=== PATIENT | male | born 1960 | race Caucasian/White ===

== ENCOUNTER 2023-11-22 07:30 | Outpatient (CLI) | payer OTHER ==
--- NOTE | 2023-11-22 10:01 | XRAY Report ---
PROCEDURE: Chest 2V INDICATIONS: ANASARCA TECHNIQUE: 2 views of the chest were acquired. COMPARISON: None. FINDINGS: Surgical changes and devices: None. Lungs and pleura: Moderate right pleural effusion with adjacent atelectasis versus consolidation. In creased interstitial markings bilaterally. Mediastinum: Mediastinal contours appear normal. Heart size is mildly enlarged. Bones and chest wall: No suspicious bony lesions. Overlying soft tissues appear unremarkable. IMPRESSION: Heart is mildly enlarged with a moderate right pleural effusion and increased interstitial markings b ilaterally, consistent with volume overload. Reviewed by: Skyler Haynes MD on 11/22/2023 9:59 AM PST Approved by: Skyler Haynes MD on 11/22/2023 9:59 AM PST Station ID: [id number]
== END 2023-11-22 07:45 | disposition home or self-care (01) ==
LOC: DI.N 07:30
PROVIDERS: ATTEND Family Medicine
DX: R60.1 Generalized edema (principal); I51.7 Cardiomegaly; J90 Pleural effusion, not elsewhere classified; R91.8 Other nonspecific abnormal finding of lung field

== ENCOUNTER 2023-11-22 07:45 | Outpatient (CLI) | payer OTHER | END 2023-11-22 08:00 | disposition home or self-care (01) | LOC: LAB.N 07:45 | PROVIDERS: ATTEND Family Medicine | DX: I10 Essential (primary) hypertension (principal); R60.1 Generalized edema; R06.02 Shortness of breath | CPT/HCPCS: 36415; 80053; 83880; 84443; 85025 ==

== ENCOUNTER 2023-11-22 09:11 | Emergency (ER) | payer OTHER ==
[2023-11-22] MEDS ORDERED: FUROSEMIDE 40 MG/4 ML VIAL IVP STA (10:08)
--- NOTE | 2023-11-22 10:10 | ED Physician Documentation ---
History of Present Illness - Stated complaint Stated Complaint: BILAT LEG SWELLING,SOA, - Chief complaint Chief Complaint: General - History obtained from History obtained from: Patient, Family - History of Present Illness Timing: How many days ago (3) - Additonal information Additional information: Durga Rodarte is a 63-year-old male with no specific prior medical history with the exception of being overweight. He is not on any medications and has not seen the doctor in 14 years. Today he went into the urgent care clinic was seen by Dr. Liu for acute swelling (3 days) of the scrotum, shortness of breath and fluid retention with a gain of 40lbs over the past 2 months. The chest x-ray is obtained demonstrating a right-sided pleural effusion, the scrotum is markedly swollen and there is fluid retention all the way to the upper back. He is sent to the ED as this problem looks like it will require IV diuresis and possible thoracentesis. Review of Systems Constitutional: denies: Fever Eyes: denies: Decreased vision, Photophobia Ears: denies: Ear pain Nose: denies: Rhinorrhea / runny nose, Congestion Throat: denies: Sore throat Cardiac: reports: Pedal edema. denies: Chest pain / pressure, Palpitations, Calf pain Respiratory: reports: Dyspnea. denies: Cough, Wheezing GI: reports: Constipation. denies: Abdominal Pain, Nausea, Vomiting : reports: Other (marked scrotal swelling with pain). denies: Dysuria, Frequency Skin: denies: Rash Musculoskeletal: reports: Extremity swelling. denies: Neck pain, Back pain, Extremity pain Neurologic: denies: Generalized weakness, Focal weakness, Numbness PD PAST MEDICAL HISTORY - Past Medical History Past Medical History: Yes Neuro: Migraines Musculoskeletal: Other - Past Surgical History Past Surgical History: Yes Ortho: Other - Present Medications Home Medications: Ambulatory Orders Medication Instructions Recorded Confirmed Potassium Chloride 8 meq PO DAILY PM #20 cap 11/22/23 - Allergies Allergies/Adverse Reactions: Allergies Allergy/AdvReac Type Severity Reaction Status Date / Time No Known Drug Allergies Allergy Verified 11/22/23 09:36 - Social History Does the pt smoke?: No Smoking Status: Never smoker Does the pt drink ETOH?: Yes Does the pt have substance abuse?: No - Immunizations Immunizations are current?: Yes - POLST Patient has POLST: No PD ED PE NORMAL - Vitals Vital signs reviewed: Yes (hypertensive and hypoxic) - General General: Alert and oriented X 3, Well developed/nourished, Other (appears dyspneic at rest) - HEENT HEENT: Atraumatic, PERRL, EOMI - Neck Neck: Supple, no meningeal sign, No bony TTP - Cardiac Cardiac: RRR, Other (2/6 holosystolic murmer at LSB.) - Respiratory Respiratory: Other (diminished breath sounds on the right base) - Abdomen Abdomen: Soft, Non tender, Other (distended) - Back Back: No CVA TTP, No spinal TTP - Derm Derm: Normal color, Warm and dry, No rash - Extremities Extremities: No deformity, Other (edema present 2+ pitting up to back) - Neuro Neuro: Alert and oriented X 3, apricot packer 2-12 intact, No motor deficit, No sensory deficit, Normal speech Eye Opening: Spontaneous Motor: Obeys Commands Verbal: Oriented GCS Score: 15 - Psych Psych: Normal mood, Normal affect Results - Vitals Vitals: Vital Signs - 24 hr 11/22/23 11/22/23 11/22/23 09:30 11:36 11:55 Temperature 36.4 C L Heart Rate 92 89 Respiratory 20 18 Rate Blood Pressure 169/70 H 153/75 H O2 Saturation 87 L 94 77 L If not protocol : Oxygen Flow, liters/minute 11/22/23 11/22/23 12:13 14:00 Temperature Heart Rate 84 Respiratory 15 Rate Blood Pressure 144/67 H O2 Saturation 95 98 If not protocol 4 3 : Oxygen Flow, liters/minute Oxygen O2 Source Nasal cannula - EKG (time done) 0953 EKG releavant findings:: EKG personally interpreted by author of this note. Relevant findings are: Rate: Rate (enter#) (88) Rhythm: NSR QRS: Low voltage (borderline) Compare to prior EKG: Unchanged from prior EKG (SPT done earlier today in the office there are no specific changes ) Computer interpretation: Agree with computer - Labs Labs: Laboratory Tests 11/22/23 11/22/23 11/22/23 11:00 11:00 11:00 WBC 5.7 RBC 3.61 L Hgb 11.8 L Hct 36.1 L MCV 100.0 H MCH 32.7 H MCHC 32.7 RDW 17.0 H Plt Count 87 L MPV 9.1 Neut # (Auto) 3.7 Lymph # (Auto) 1.1 L [place] # (Auto) 0.6 Eos # (Auto) 0.3 Baso # (Auto) 0.0 Absolute Nucleated RBC 0.00 Nucleated RBC % 0.0 Manual Slide Review ROGUER WBC Morphology ROGUER Platelet Estimate ROGUER Platelet Morphology ROGUER RBC Morph Micro Appear ROGUER PT INR APTT Sodium 138 Potassium 4.0 Chloride 109 Carbon Dioxide 22 Anion Gap 7.0 BUN 16 Creatinine 0.7 Estimated GFR (MDRD) 114 Glucose 91 Calcium 8.5 Total Bilirubin 5.5 H AST 35 ALT 19 Alkaline Phosphatase 145 H Troponin I High Sens 8.8 B-Natriuretic Peptide 136 H Total Protein 5.9 L Albumin 2.9 L Globulin 3.0 Albumin/Globulin Ratio 1.0 Lipase 75 TSH 5.22 Urine Color Urine Clarity Urine pH Ur Specific [place] Urine Protein Urine Glucose (UA) Urine Ketones Urine Occult Blood Urine Nitrite Urine Bilirubin Urine Urobilinogen Ur Leukocyte Esterase Ur Microscopic Review Urine Culture Comments Slides for Path Review ROGUER 11/22/23 11/22/23 12:20 14:45 WBC RBC Hgb Hct MCV MCH MCHC RDW Plt Count MPV Neut # (Auto) Lymph # (Auto) [place] # (Auto) Eos # (Auto) Baso # (Auto) Absolute Nucleated RBC Nucleated RBC % Manual Slide Review WBC Morphology Platelet Estimate Platelet Morphology RBC Morph Micro Appear PT 15.7 H INR 1.4 H APTT 30.6 Sodium Potassium Chloride Carbon Dioxide Anion Gap BUN Creatinine Estimated GFR (MDRD) Glucose Calcium Total Bilirubin AST ALT Alkaline Phosphatase Troponin I High Sens B-Natriuretic Peptide Total Protein Albumin Globulin Albumin/Globulin Ratio Lipase TSH Urine Color YELLOW Urine Clarity CLEAR Urine pH 6.0 Ur Specific [place] 1.010 Urine Protein NEGATIVE Urine Glucose (UA) NEGATIVE Urine Ketones NEGATIVE Urine Occult Blood TRACE-INTA Urine Nitrite NEGATIVE Urine Bilirubin NEGATIVE Urine Urobilinogen 0.2 (NORMAL) Ur Leukocyte Esterase NEGATIVE Ur Microscopic Review NOT INDICATED Urine Culture Comments NOT INDICATED Slides for Path Review - Rads (name of study) chest Relevant Findings:: Prelim report reviewed (Impression: Heart is mildly enlarged with moderate right pleural effusion and increased interstitial markings bilaterally, consistent with volume overload.), EMP independent interpretation of test Procedures - Bedside sono Bedside sono by EMP: With use of POCUS I examined the right lung field found there to be a rim of fluid around it looks like the lung tissue this did not appear to be amenable to thoracentesis in the emergency department. - IVC sono (time) 1000 Bedside IVC sono: IVC measures (cm) (2.1), Fluid overload PD Medical Decision Making - ED course Complexity details: reviewed results, re-evaluated patient, considered differential Reviewed Lab Results: We reviewed a complete blood count showing a normal white blood cell count of 5.7 and a depressed hemoglobin 11.8 and a depressed hematocrit of 36.1 and an elevated MCV of 100 and low platelets of 87,000. There are no comparisons for this patient. Chemistries showed normal electrolytes normal kidney function BNP mildly elevated 136 troponin elevated normal at 8.8 TSH is normal at 5.22 total bilirubin elevated at 5.5 alkaline phosphatase mildly elevated at 145 AST and ALT are normal and again these laboratory tests are without comparisons. My interpretation of these results are the patient likely has a hematologic process with the low platelets he also has an elevated bilirubin without significant other liver function elevations possibly consistent with passive liver congestion. Heart failure is suspected by presentation but the BNP minimally elevated at 136 suggest possible alternative explanation of fluid retention . ED course: 63-year-old male presents to the emergency department with anasarca and swelling of the scrotum that is painful. He looks to have fluid retention with normal renal function. He does not have cardiomegaly and his BNP is only mildly elevated. Etiology is likely alcoholic with low platelets, elevated bilirubin, elevated INR and a history of 1-2 bottles of wine per day. He is hypoxic with O2 sats in the upper 80's to 91. This improves over time with diuresis. Dr. Antunez is consulted in the case and evaluates the patient and finds his level of hypoxia improved. The patient is invested in going home and without criteria for admission he is released. He does have an oxygen concentrator at home and his will bring him back tomorrow for the thoracentesis. He has lasix and blood pressure medication prescribed by Dr. Liu. I have added some potassium as well. Departure - Departure Disposition: Home, Self Care Clinical Impression: Anasarca, Pleural effusion, Hypoxia Condition: Serious Instructions: ED Effusion Pleural, Furosemide tablets Follow-Up: [facility] [place] [Provider Group] Prescriptions: Potassium Chloride 8 meq PO DAILY PM #20 cap Comments: Durga, today it looks like you have anasarca or whole body fluid retention and this is likely a result of liver disease. The liver disease is likely a result of alcohol use. There is a pleural effusion on the right side and this should be drained and you will become more comfortable with your breathing. Follow-up here tomorrow morning at 930 for a thoracentesis in the radiology department. Dr. Liu has prescribed some diuretic and blood pressure medication in addition to this I have prescribed you some potassium to go along with the Lasix. The expectation with treatment is continued improvement in the amount of swelling you are having, and after thoracentesis a marked improvement in your breathing. A follow-up is indicated with [facility] in [place] in the coming week.
[2023-11-22 11:11] LABS: BASOPHILS % (AUTO) 0.7 %; EOSINOPHILS # (AUTO) 0.3 10^3/uL (0.0-0.7); EOSINOPHILS % (AUTO) 5.1 %; HCT - HEMATOCRIT 36.1 % (42.0-52.0); HGB - HEMOGLOBIN 11.8 g/dL (14.0-18.0); LYMPHOCYTES # (AUTO) 1.1 10^3/uL (1.5-3.5); LYMPHOCYTES % (AUTO) 19.4 %; MEAN CORPUSCULAR HEMOGLOBIN 32.7 pg (27.0-31.0); MEAN CORPUSCULAR HGB CONC 32.7 g/dL (32.0-36.0); MEAN PLATELET VOLUME 9.1 fL (7.4-11.4); MONOCYTES # (AUTO) 0.6 10^3/uL (0.0-1.0); MONOCYTES % (AUTO) 9.9 %; NEUTROPHILS # (AUTO) 3.7 10^3/uL (1.5-6.6); NEUTROPHILS % (AUTO) 64.6 %; PLT - PLATELET COUNT 87 10^3/uL (130-450); RED BLOOD COUNT 3.61 10^6/uL (4.70-6.10); WHITE BLOOD COUNT 5.7 x10^3/uL (4.8-10.8)
[2023-11-22 11:30] LABS: ALBUMIN 2.9 g/dL (3.2-5.5); BILIRUBIN,TOTAL 5.5 mg/dL (0.2-1.0); CALCIUM 8.5 mg/dL (8.5-10.3); CREATININE 0.7 mg/dL (0.6-1.3); TOTAL PROTEIN 5.9 g/dL (6.4-8.9)
[2023-11-22 11:35] LABS: TROPONIN I HIGH SENSITIVITY 8.8 ng/L (2.3-19.7)
[2023-11-22 11:45] LABS: THYROID STIMULATING HORMONE 5.22 uIU/mL (0.34-5.60)
[2023-11-22] MEDS ORDERED: iohexoL-300 100 ML VIAL ONE (12:12)
[2023-11-22 12:38] LABS: BILIRUBIN,URINE NEGATIVE (NEGATIVE); GLUCOSE, URINE (UA) NEGATIVE (NEGATIVE); KETONES,URINE (UA) NEGATIVE (NEGATIVE); LEUKOCYTE ESTERASE, URINE NEGATIVE (NEGATIVE); NITRITE,URINE NEGATIVE (NEGATIVE); OCCULT BLOOD,URINE TRACE-INTA (NEGATIVE); PROTEIN,URINE NEGATIVE (NEGATIVE); UROBILINOGEN,URINE 0.2 (NORMAL) E.U./dL (NORMAL)
[2023-11-22 13:29] LABS: CLARITY,URINE CLEAR (CLEAR)
--- NOTE | 2023-11-22 13:41 | CT Report ---
PROCEDURE: Chest W INDICATIONS: R pleural effusion CONTRAST: Omni 300 100ml TECHNIQUE: After the administration of intravenous contrast, a CT scan of the chest was performed. Images were recorded and evaluated at appropriate window settings. Reformats: axial MIP of the chest, coronal and sagittal. For radiation dose reduction, the following was used: automated exposure control, adjustme nt of mA and/or kV according to patient size. COMPARISON: Chest radiograph from the same day. FINDINGS: Image quality: Diagnostic. Chest wall and lower neck: Generalized anasarca is seen. No thyroid nodule which requires sonographic follow up. No axillary or supraclavicular adenopathy by size. Lungs and pleura: There is moderate right pleural effusion with near complete atelectasis of right lo wer lobe and segments atelectasis in posterior aspect of right middle lobe. Mild dependent atelectasi s in posterior aspect of right upper lobe is also seen. No pneumothorax. No left-sided pleural effusi on. No suspicious pulmonary nodule or mass. Central and peripheral airway is patent. Mediastinum: Heart size is normal. No pericardial effusion. No large vessel abnormality. Single-vesse l coronary artery atherosclerotic disease is seen. No mediastinal adenopathy by size criteria. Bones: No aggressive osseous abnormality. Upper Abdomen: Visualized upper abdomen shows moderate amount of ascites fluid and splenomegaly. IMPRESSION: 1. Moderate size right pleural effusion with atelectasis of right lower lobe and segmental atelectasi s in posterior right middle lobe. No suspicious pulmonary nodule or mass. No pneumothorax. Airway is patent. Left lung is clear. 2. Moderate ascites fluid in visualized upper abdomen. Splenomegaly. 3. Generalized anasarca suggestive of third spacing. Heart size is normal, no pericardial effusion. N o mediastinal or hilar lymphadenopathy. Single-vessel coronary artery atherosclerotic disease. Reviewed by: Caleb Stein MD on 11/22/2023 1:40 PM PST Approved by: Caleb Stein MD on 11/22/2023 1:40 PM PST Station ID: [id number]
[2023-11-22 15:06] LABS: PARTIAL THROMBOPLASTIN TIME 30.6 secs (24.9-33.3)
[2023-11-22 15:10] LABS: INR 1.4 (0.8-1.2); PT - PROTHROMBIN TIME 15.7 secs (9.9-12.6)
[2023-11-22] MEDS ORDERED: iohexoL-300 100 ML VIAL IVP ONE (15:17)
[2023-11-22 17:18] VITALS: BP 133/78; O2SAT 91
== END 2023-11-22 17:12 | disposition home or self-care (01) ==
LOC: ED 09:11
DX: J18.2 Hypostatic pneumonia, unspecified organism (principal); J90 Pleural effusion, not elsewhere classified; R09.02 Hypoxemia; R60.1 Generalized edema; I51.7 Cardiomegaly; R91.8 Other nonspecific abnormal finding of lung field
CPT/HCPCS: 36415; 71046; 71260; 80053; 81003; 83690; 83880; 84443; 84484; 85025; 85610; 85730; 93005; 96374; 99284; Q9967; 81001; 87086

== ENCOUNTER 2023-11-25 09:24 | Inpatient (IN) | payer OTHER ==
--- NOTE | 2023-11-25 10:05 | XRAY Report ---
PROCEDURE: Chest 1V INDICATIONS: Shortness of breath TECHNIQUE: One view of the chest was acquired. COMPARISON: 11/22/2023 FINDINGS: Surgical changes and devices: None. Lungs and pleura: There is a right-sided pleural effusion seen, with overlying atelectasis. Generali zed interstitial prominence can be seen. No large pneumothorax is seen on this semiupright study. Mediastinum: Mediastinal contours appear normal. Heart size is normal. Bones and chest wall: No suspicious bony lesions. Overlying soft tissues appear unremarkable. IMPRESSION: Right-sided pleural effusion with overlying atelectasis. The appearance is slightly improved compared to the 11/22/2023 examination. Reviewed by: Yordy Guerrier MD on 11/25/2023 9:03 AM [facility] Approved by: Yordy Guerrier MD on 11/25/2023 9:03 AM [facility] Station ID: [id number]
[2023-11-25 10:50] LABS: BASOPHILS % (AUTO) 0.7 %; EOSINOPHILS # (AUTO) 0.1 10^3/uL (0.0-0.7); HCT - HEMATOCRIT 35.4 % (42.0-52.0); HGB - HEMOGLOBIN 11.1 g/dL (14.0-18.0); LYMPHOCYTES % (AUTO) 17.2 %; MEAN CORPUSCULAR HEMOGLOBIN 31.4 pg (27.0-31.0); MEAN CORPUSCULAR HGB CONC 31.4 g/dL (32.0-36.0); MEAN PLATELET VOLUME 9.3 fL (7.4-11.4); MONOCYTES # (AUTO) 0.9 10^3/uL (0.0-1.0); MONOCYTES % (AUTO) 15.5 %; NEUTROPHILS # (AUTO) 3.9 10^3/uL (1.5-6.6); NEUTROPHILS % (AUTO) 64.3 %; PLT - PLATELET COUNT 94 10^3/uL (130-450); RED BLOOD COUNT 3.54 10^6/uL (4.70-6.10); RED CELL DISTRIBUTION WIDTH 16.8 % (12.0-15.0)
[2023-11-25 11:12] LABS: TROPONIN I HIGH SENSITIVITY 5.1 ng/L (2.3-19.7)
[2023-11-25 11:17] LABS: ALBUMIN 2.7 g/dL (3.2-5.5); CALCIUM 8.3 mg/dL (8.5-10.3); CREATININE 1.3 mg/dL (0.6-1.3); POTASSIUM 4.1 mmol/L (3.5-4.5); TOTAL PROTEIN 5.4 g/dL (6.4-8.9)
[2023-11-25] MEDS: FUROSEMIDE 40 MG/4 ML VIAL IVP STA (11:40)
--- NOTE | 2023-11-25 11:50 | ED Physician Documentation ---
PD HPI DYSPNEA - Stated complaint Stated Complaint: SWELLING, - Chief complaint Chief Complaint: Resp - History obtained from History obtained from: Patient, Family - Additional information Additional information: Patient is a 63-year-old male presenting for evaluation of worsening body swelling with shortness of air. Patient symptoms started at least 5 days ago at which time he was seen at the walk-in clinic and directed to the emergency department. Labs were obtained as well as a chest x-ray and CT scan of the chest. Patient was started on furosemide. He returned on November 23 and had a thoracentesis with 2 L of output. He states that his breathing really did not feel much better after this. He has been using oxygen at home. This is not prescribed to him but they have an oxygen concentrator that belonged to his father. states that at rest he has been satting around 88% but if he moves at all a little bit his oxygen saturations drop as low as into the 60s and 70s. After his ED visit on November 23 it was recommended that he double his dose of Lasix and he has been taking 80 mg p.o. daily for the last 3 days.Patient is short of breath with any movement. He denies any chest pain. Cook catheter had also been placed on prior ED visits and he has only had 500 mL of urine output yesterday with intake of approximately 2300 mL.Denies fever. No cough. Patient's weight was charted at 154 kg on November 23 and . Today he is weighing 156 kg. Review of Systems Constitutional: denies: Fever Cardiac: denies: Chest pain / pressure Respiratory: reports: Dyspnea GI: denies: Abdominal Pain Musculoskeletal: reports: Extremity swelling PD PAST MEDICAL HISTORY - Past Medical History Cardiovascular: Hypertension Neuro: Migraines Musculoskeletal: Other - Past Surgical History Past Surgical History: Yes Ortho: Other - Present Medications Home Medications: Ambulatory Orders Medication Instructions Recorded Confirmed Potassium Chloride 8 meq PO DAILY PM #20 cap 11/22/23 11/25/23 Furosemide [Lasix] 20 mg PO BID 5 Days #10 tablet 11/23/23 11/25/23 carvediloL [Coreg] 3.125 mg PO BID 11/23/23 11/25/23 - Allergies Allergies/Adverse Reactions: Allergies Allergy/AdvReac Type Severity Reaction Status Date / Time No Known Drug Allergies Allergy Verified 11/23/23 09:39 - Social History Does the pt smoke?: No Smoking Status: Never smoker Does the pt drink ETOH?: Yes Does the pt have substance abuse?: No - Immunizations Immunizations are current?: Yes - POLST Patient has POLST: No PD ED PE NORMAL - General General: Alert and oriented X 3, No acute distress, Well developed/nourished - HEENT HEENT: Atraumatic - Neck Neck: Supple, no meningeal sign - Cardiac Cardiac: RRR, Strong equal pulses - Respiratory Respiratory: Other (Tachypneic with minimal movements, diminished at the bases) - Abdomen Abdomen: Normal bowel sounds, Soft, Non tender - Male Male : Other (Scrotal edema, Cook catheter in place) - Derm Derm: Warm and dry - Extremities Extremities: Other (Bilateral lower extremity edema) - Neuro Neuro: Normal speech Results - Vitals Vitals: Vital Signs - 24 hr 11/25/23 11/25/23 11/25/23 09:29 11:27 12:35 Temperature 36.5 C Heart Rate 77 72 Respiratory 28 H 13 Rate Blood Pressure 131/60 H 119/71 O2 Saturation 88 L 95 88 L Oxygen O2 Source Room air Oxygen Flow Rate 2 - EKG (time done) 0950 EKG releavant findings:: EKG personally interpreted by author of this note. Relevant findings are: Rate 76, normal sinus rhythm, no STEMI, QTc 493 - Labs Labs: Laboratory Tests 11/25/23 11/25/23 11/25/23 10:46 10:46 10:46 WBC 6.0 RBC 3.54 L Hgb 11.1 L Hct 35.4 L MCV 100.0 H MCH 31.4 H MCHC 31.4 L RDW 16.8 H Plt Count 94 L MPV 9.3 Neut # (Auto) 3.9 Lymph # (Auto) 1.0 L [place] # (Auto) 0.9 Eos # (Auto) 0.1 Baso # (Auto) 0.0 Absolute Nucleated RBC 0.00 Nucleated RBC % 0.0 Sodium 139 Potassium 4.1 Chloride 107 Carbon Dioxide 24 Anion Gap 8.0 BUN 29 H Creatinine 1.3 Estimated GFR (MDRD) 56 L Glucose 94 Calcium 8.3 L Total Bilirubin 5.0 H AST 25 ALT 17 Alkaline Phosphatase 110 Troponin I High Sens 5.1 B-Natriuretic Peptide 143 H Total Protein 5.4 L Albumin 2.7 L Globulin 2.7 Albumin/Globulin Ratio 1.0 Lipase 347 H PD Medical Decision Making - ED course Complexity details: reviewed results, re-evaluated patient, d/w patient, d/w family ED course: Patient is a 63-year-old male presenting for evaluation of shortness of air and worsening swelling. This is his third ED visit for similar symptoms in the last few days. He is hypoxic on initial vitals with a room air sat of 88%. Per his spouse he has been using oxygen at home that does not belong to him because they have also noted that he has been hypoxic. He has been taking the Lasix as directed including a recent increase in the dose without any significant improvement. He recently had a right-sided thoracentesis which did not help his symptoms significantly. EKG shows a normal sinus rhythm. Labs including CBC, chemistry, troponin and PFT were obtained and reviewed. Chest x-ray which I reviewed shows a right-sided pleural effusion, no pneumothorax. Patient has not improved despite attempts at outpatient management and again is requiring oxygen. Discussed with Dr. Antunez who will admit for further management. I did give an additional dose of Lasix to see if this would increase any urine output this morning. We also changed the Cook catheter to ensure that it is draining. Departure - Departure Disposition: [facility] DC/[place] Clinical Impression: Acute hypoxemic respiratory failure, Peripheral edema Discharge Date/Time: 11/25/23 14:21
[2023-11-25] MEDS ORDERED: SODIUM CHLORIDE FLUSH 0.9% 10 ML SYRINGE IVP PRN (12:50)
--- NOTE | 2023-11-25 13:03 | HISTORY & PHYSICAL EXAMINATION ---
Chief Complaint - Chief Complaint Chief Complaint: Swelling History of Present Illness - Admitted From Admitted From:: [facility] - History Obtained From Records Reviewed: Yes History obtained from: Patient, significant other and emergency room physician, Dr. Sergio Simmons - History of Present Illness HPI Comment/Other: Stacy Rodarte is a 63-year-old man who presents to the emergency room with complaints of diffuse body edema and shortness of breath. Patient reports he has noticed increased edema in his abdominal area since [place]. He reports that it is worsened significantly over the last week. He was initially seen in the emergency room. On November 22, 2023 and was sent home on diuretics. He returned the next day and underwent a right thoracentesis. Approximately 2 L of fluid was removed from the right pleural space.He reports he has been using oxygen at home from an oxygen concentrator. The oxygen was not prescribed for him. He reports he has been taking 80 mg of Lasix twice a day. In emergency room, patient received 40 mg of Lasix intravenously. He reports he has never had a sleep study and does not use CPAP therapy. History - Past Medical History Cardiovascular: reports: Hypertension Neuro: reports: Migraines Musculoskeletal: reports: Other - Past Surgical History Ortho: reports: Other - POLST Patient has POLST: No Meds/Allgy - Home Medications Home Medications: Ambulatory Orders Medication Instructions Recorded Confirmed Potassium Chloride 8 meq PO DAILY PM #20 cap 11/22/23 11/25/23 Furosemide [Lasix] 20 mg PO BID 5 Days #10 tablet 11/23/23 11/25/23 carvediloL [Coreg] 3.125 mg PO BID 11/23/23 11/25/23 - Allergies Allergies/Adverse Reactions: Allergies Allergy/AdvReac Type Severity Reaction Status Date / Time No Known Drug Allergies Allergy Verified 11/23/23 09:39 Review of Systems - Constitutional Constitutional: reports: Fatigue, Weakness, Weight gain - Respiratory Respiratory: reports: Snoring, SOB at rest, SOB with exertion - Gastrointestinal Gastrointestinal: reports: Other (Increased abdominal girth.) Exam - Vital Signs Reviewed Vital Signs: Yes Vital Signs: Vital Signs x48h Temp Pulse Resp BP Pulse Ox O2 Flow Rate 11/25/23 12:58 36.5 C 76 15 127/67 97 2 11/25/23 12:35 88 L 11/25/23 11:27 72 13 119/71 95 11/25/23 09:29 36.5 C 77 28 H 131/60 H 88 L - Physical Exam General Appearance: positive: No acute distress, Alert Eyes Bilateral: positive: EOMI, Conjunctivae nml ENT: positive: No signs of dehydration Neck: positive: No JVD, Trachea midline Respiratory: positive: Other (Fair air exchange in all lung freire no wheezing. Positive bibasilar crackles.) Cardiovascular: positive: Other (Positive S1-S2 no extra heart sounds.) Abdomen: positive: Other (Positive bowel sounds. Morbidly obese. Nontender. Nondistended) Skin: positive: No rash Extremities: positive: Non-tender Neurologic/Psychiatric: positive: Oriented x3, Other (Nonfocal exam.) Conclusion/Plan - Problem List (1) Acute hypoxemic respiratory failure Conclusion/Plan: Etiology of hypoxemic respiratory failure is unknown and differential diagnosis would include cardiac dysfunction, liver disease and pulmonary hypertension. Plan: Admit to the medical floor Continue diuresis Patient may benefit from several doses of albumin Echocardiogram CT of abdomen/pelvis if can obtain one. He not fit on CT table. (2) Anasarca Etiology of anasarca is not clear and may be secondary to heart failure, liver failure or a multifactorial process. - Lab Results Fish Bones: 11/25/23 10:46 11/25/23 10:46
--- NOTE | 2023-11-25 14:21 | PHARMACY PROGRESS NOTE ---
- Best Possible Medication History Admit Date and Time: 11/25/23 1250 Processed by: Nursing As the person ultimately responsible for medication therapy, providers are able to order a medication from an existing home medication list in [facility] via the "Reconcile Routine" prior to Confirmation of that medication by family readiness support assistant. Such practice is discouraged except when the physician, in their clinical judgment, deems that a medical need exists for a medication without regard to previous use.
[2023-11-25] MEDS: POTASSIUM CHLORIDE 20 MEQ/15 ML UDC PO SCH ×2 (17:10→23:45)
[2023-11-25] MEDS: FUROSEMIDE IV SCH (17:12)
[2023-11-25] MEDS: SODIUM CHLORIDE 0.9% IV SCH (17:12)
[2023-11-25] MEDS: ALBUMIN 25% 12.5 GM/50 ML VIAL IV SCH ×2 (17:12→18:12)
[2023-11-25] MEDS: HYDROcod/ACETAM 5/325 MG TABLET PO PRN (17:12)
[2023-11-25] MEDS: SODIUM CHLORIDE FLUSH 0.9% 10 ML SYRINGE IVP SCH (17:12)
[2023-11-25] MEDS: HEPARIN 5,000 UNIT/ML VIAL SUBQ SCH (20:38)
[2023-11-25] MEDS: SPIRONOLACTONE 25 MG TABLET PO SCH (21:43)
[2023-11-26 06:14] LABS: CALCIUM 8.3 mg/dL (8.5-10.3); CREATININE 1.1 mg/dL (0.6-1.3); MAGNESIUM 1.6 mg/dL (1.7-2.3); PHOSPHORUS 4.5 mg/dL (2.5-5.0); POTASSIUM 3.9 mmol/L (3.5-4.5)
--- NOTE | 2023-11-26 08:16 | PROVIDER PROGRESS NOTE ---
Assessment/Plan - Problem List (1) Acute hypoxemic respiratory failure Assessment/Plan: Etiology of hypoxemic respiratory failure is unknown and differential diagnosis would include cardiac dysfunction, liver disease and pulmonary hypertension. Plan: Continue diuresis Patient with good urine output overnight. Continue albumin and Lasix. Echocardiogram CT of abdomen/pelvis if can obtain one. He not fit on CT table. Continue to monitor serum potassium. (2) Anasarca Etiology of anasarca is not clear and may be secondary to heart failure, liver failure or a multifactorial process. - Current Meds Current Meds: Current Medications Generic Name Dose Route Start Last Admin Trade Name Freq PRN Reason Stop Dose Admin Hydrocodone Bitart/Acetaminophen 1 tab 11/25/23 15:51 11/26/23 07:43 Hydrocod/Acetam 5/325 Mg Tablet PO 1 tab Q4HR PRN Administration Moderate Pain (Level 4-6) Heparin Sodium (Porcine) 5,000 unit 11/25/23 21:00 11/25/23 20:40 Heparin 5,000 Unit/Ml Vial SUBQ Not Given BID ILA Furosemide 40 mg/ Sodium 54 mls @ 27 mls/hr 11/25/23 17:00 11/26/23 03:14 Chloride IV Infused Q8H ILA Infusion Protocol Albumin Human 12.5 gm in 50 mls @ 50 mls/hr 11/25/23 17:00 11/26/23 02:26 Albuminar-25 IV Infused Q8H ILA Infusion Albumin Human 12.5 gm in 50 mls @ 50 mls/hr 11/25/23 18:00 11/26/23 03:20 Albuminar-25 IV Infused Q8H ILA Infusion Potassium Chloride 40 meq 11/25/23 16:17 11/26/23 07:43 Potassium Chloride 20 Meq/15 Ml Udc PO 40 meq DAILYWM ILA Administration Potassium Chloride 40 meq 11/25/23 23:45 11/25/23 23:45 Potassium Chloride 20 Meq/15 Ml Udc PO 11/26/23 23:44 40 meq ONCE ILA Administration Sodium Chloride 10 ml 11/25/23 17:00 11/26/23 02:08 Sodium Chloride Flush 0.9% 10 Ml Syringe IVP 10 ml 0100,0900,1700 ILA Administration Spironolactone 25 mg 11/25/23 21:27 11/25/23 21:43 Spironolactone 25 Mg Tablet PO 25 mg DAILY ILA Administration - Lab Result Fish Bone Diagrams: 11/25/23 10:46 11/26/23 19:17 - Additional Planning My Orders: My Active Orders 11/25/23 12:50 Activity Orders [RC] Q2HR IO [RC] IOSHIFT Initiate Bowel Care Protocol [RC] .protocol Initiate Line Care Protocol [RC] QSHIFT Initiate Personal Care Protoco [RC] .protocol Oxygen Therapy [RC] .PRN Telemetry (24 Hour) [RC] Q4HR Vital Signs [RC] Q4HR Sodium Chloride Flush 0.9% [Normal Saline Flush 0.9%] 10 ml IVP PRN PRN Code Status [OTHERS] Routine Condition of Patient [OTHERS] Routine DVT Prophylaxis [OTHERS] Routine 11/25/23 12:57 Evaluate and Treat OT [OT] Routine Evaluate and Treat PT [PT] Routine 11/25/23 13:00 Daily Weight [RC] 0600 Fluid Restriction [RC] IOSHIFT Miscellaenous Nursing Order [RC] QSHIFT 11/25/23 15:51 HYDROcod/ACETAM 5/325 [[place] 5/325] 1 tab PO Q4HR PRN 11/25/23 Dinner Cardiac Diet [DIET] 11/25/23 16:17 Potassium Chloride Oral Soln [Potassium Chloride] 40 meq PO DAILYWM 11/25/23 17:00 Albumin 25% [Albuminar-25] 12.5 gm in 50 ml IV Q8H FUROSEMIDE INJ 100mg VIAL [LASIX INJ 100mg VIAL] 40 mg Sodium Chloride 0.9% [Normal Saline 0.9%] 50 ml IV Q8H Sodium Chloride Flush 0.9% [Normal Saline Flush 0.9%] 10 ml IVP 0100,0900,1700 11/25/23 18:00 Albumin 25% [Albuminar-25] 12.5 gm in 50 ml IV Q8H 11/25/23 21:00 Heparin [Heparin Sodium (Porcine)] 5,000 unit SUBQ BID 11/25/23 21:27 Spironolactone [Aldactone] 25 mg PO DAILY 11/25/23 23:45 Potassium Chloride Oral Soln [Potassium Chloride] 40 meq PO ONCE 11/26/23 08:00 Echo Complete w/Bubble Study [ECHO] Routine Subjective - Subjective Patient Reports: Other (Alert. He denies chest pain, abdominal pain. He has no other complaints at this time.) Objective Vital Signs: Vital Signs - 24 hr 11/25/23 11/25/23 11/25/23 09:29 11:27 12:35 Temperature 36.5 C Heart Rate 77 72 Heart Rate [ Brachial] Heart Rate [ Monitoring electrodes] Respiratory 28 H 13 Rate Blood Pressure 131/60 H 119/71 Blood Pressure [Right Brachial artery] O2 Saturation 88 L 95 88 L If not protocol : Oxygen Flow, liters/minute 11/25/23 11/25/23 11/25/23 12:58 13:30 13:39 Temperature 36.5 C 36.6 C Heart Rate 76 Heart Rate [ Brachial] Heart Rate [ 72 Monitoring electrodes] Respiratory 15 26 H Rate Blood Pressure 127/67 Blood Pressure 134/86 H [Right Brachial artery] O2 Saturation 97 96 If not protocol 2 2 2 : Oxygen Flow, liters/minute 11/25/23 11/25/23 11/25/23 15:59 21:00 23:00 Temperature 36.7 C 36.7 C Heart Rate Heart Rate [ 78 Brachial] Heart Rate [ 76 Monitoring electrodes] Respiratory 18 20 Rate Blood Pressure Blood Pressure 127/63 127/62 [Right Brachial artery] O2 Saturation 94 95 If not protocol 2 2 2 : Oxygen Flow, liters/minute 11/25/23 11/26/23 11/26/23 23:47 06:00 07:23 Temperature 37.1 C 36.6 C 37.1 C Heart Rate Heart Rate [ 76 83 80 Brachial] Heart Rate [ Monitoring electrodes] Respiratory 19 19 22 Rate Blood Pressure Blood Pressure 138/76 H 134/69 H 142/64 H [Right Brachial artery] O2 Saturation 92 92 95 If not protocol 2 2 2 : Oxygen Flow, liters/minute 11/26/23 07:53 Temperature Heart Rate Heart Rate [ Brachial] Heart Rate [ Monitoring electrodes] Respiratory Rate Blood Pressure Blood Pressure [Right Brachial artery] O2 Saturation If not protocol 2 : Oxygen Flow, liters/minute Oxygen O2 Source Nasal cannula Oxygen Flow Rate 2 I&O (Last 24 Hrs): Intake and Output Totals x24h 11/24/23 11/25/23 11/26/23 23:59 23:59 23:59 Intake Total 1064 154 Output Total 1150 950 Balance -86 -796 General: Alert, Oriented x3, Cooperative, No acute distress HEENT: Atraumatic Neck: Supple, No JVD, No thyromegaly Neuro: Alert, Non Focal Cardiovascular: Regular rate, Normal S1, Normal S2, No murmurs Respiratory: Chest non-tender, No respiratory distress, Breath sounds nml Abdomen: Normal bowel sounds, Soft, No tenderness Extremities: No cyanosis, Other (Positive lower extremity edema.) Skin: No rashes - Results Results: Laboratory Results WBC 6.0 x10^3/uL (4.8-10.8) 11/25/23 10:46 RBC 3.54 10^6/uL (4.70-6.10) L 11/25/23 10:46 Hgb 11.1 g/dL (14.0-18.0) L 11/25/23 10:46 Hct 35.4 % (42.0-52.0) L 11/25/23 10:46 MCV 100.0 fL (80.0-94.0) H 11/25/23 10:46 MCH 31.4 pg (27.0-31.0) H 11/25/23 10:46 MCHC 31.4 g/dL (32.0-36.0) L 11/25/23 10:46 RDW 16.8 % (12.0-15.0) H 11/25/23 10:46 Plt Count 94 10^3/uL (130-450) L 11/25/23 10:46 MPV 9.3 fL (7.4-11.4) 11/25/23 10:46 Neut # (Auto) 3.9 10^3/uL (1.5-6.6) 11/25/23 10:46 Lymph # (Auto) 1.0 10^3/uL (1.5-3.5) L 11/25/23 10:46 [place] # (Auto) 0.9 10^3/uL (0.0-1.0) 11/25/23 10:46 Eos # (Auto) 0.1 10^3/uL (0.0-0.7) 11/25/23 10:46 Baso # (Auto) 0.0 10^3/uL (0.0-0.1) 11/25/23 10:46 Absolute Nucleated RBC 0.00 x10^3/uL 11/25/23 10:46 Nucleated RBC % 0.0 /100WBC 11/25/23 10:46 Sodium 140 mmol/L (135-145) 11/26/23 04:39 Potassium 3.9 mmol/L (3.5-4.5) 11/26/23 04:39 Potassium 3.9 mmol/L (3.5-4.5) 11/26/23 04:39 Chloride 107 mmol/L (101-111) 11/26/23 04:39 Carbon Dioxide 26 mmol/L (21-32) 11/26/23 04:39 Anion Gap 7.0 (6-13) 11/26/23 04:39 BUN 30 mg/dL (6-20) H 11/26/23 04:39 Creatinine 1.1 mg/dL (0.6-1.3) 11/26/23 04:39 Estimated GFR (MDRD) 68 (>89) L 11/26/23 04:39 Glucose 89 mg/dL (74-104) 11/26/23 04:39 Calcium 8.3 mg/dL (8.5-10.3) L 11/26/23 04:39 Phosphorus 4.5 mg/dL (2.5-5.0) 11/26/23 04:39 Magnesium 1.6 mg/dL (1.7-2.3) L 11/26/23 04:39 Total Bilirubin 5.0 mg/dL (0.2-1.0) H 11/25/23 10:46 AST 25 IU/L (10-42) 11/25/23 10:46 ALT 17 IU/L (10-60) 11/25/23 10:46 Alkaline Phosphatase 110 IU/L (42-121) 11/25/23 10:46 Troponin I High Sens 5.1 ng/L (2.3-19.7) 11/25/23 10:46 B-Natriuretic Peptide 143 pg/mL (5-100) H 11/25/23 10:46 Total Protein 5.4 g/dL (6.4-8.9) L 11/25/23 10:46 Albumin 2.7 g/dL (3.2-5.5) L 11/25/23 10:46 Globulin 2.7 g/dL (2.1-4.2) 11/25/23 10:46 Albumin/Globulin Ratio 1.0 (1.0-2.2) 11/25/23 10:46 Lipase 347 U/L (11-82) H 11/25/23 10:46 ABX Reporting Has patient been on IV antibiotics over the past 48 hours?: No Current Medications - Current Medications Current Medications: Active Medications Hydrocodone Bitart/Acetaminophen (Hydrocod/Acetam 5/325 Mg Tablet) 1 tab PO Q4HR PRN PRN Reason: Moderate Pain (Level 4-6) Last Admin: 11/26/23 07:43 Dose: 1 tab Heparin Sodium (Porcine) (Heparin 5,000 Unit/Ml Vial) 5,000 unit SUBQ BID [facility] Last Admin: 11/25/23 20:40 Dose: Not Given Furosemide 40 mg/ Sodium (Chloride) 54 mls @ 27 mls/hr IV Q8H [facility]; Protocol Last Infusion: 11/26/23 03:14 Dose: Infused Albumin Human (Albuminar-25) 12.5 gm in 50 mls @ 50 mls/hr IV Q8H [facility] Last Infusion: 11/26/23 02:26 Dose: Infused Albumin Human (Albuminar-25) 12.5 gm in 50 mls @ 50 mls/hr IV Q8H [facility] Last Infusion: 11/26/23 03:20 Dose: Infused Potassium Chloride (Potassium Chloride 20 Meq/15 Ml Udc) 40 meq PO DAILYWM [facility] Last Admin: 11/26/23 07:43 Dose: 40 meq Potassium Chloride (Potassium Chloride 20 Meq/15 Ml Udc) 40 meq PO ONCE [facility] Stop: 11/26/23 23:44 Last Admin: 11/25/23 23:45 Dose: 40 meq Sodium Chloride (Sodium Chloride Flush 0.9% 10 Ml Syringe) 10 ml IVP PRN PRN PRN Reason: NEEDED PER PROVIDER ORDERS Sodium Chloride (Sodium Chloride Flush 0.9% 10 Ml Syringe) 10 ml IVP 0100,0900,1700 [facility] Last Admin: 11/26/23 02:08 Dose: 10 ml Spironolactone (Spironolactone 25 Mg Tablet) 25 mg PO DAILY [facility] Last Admin: 11/25/23 21:43 Dose: 25 mg carvediloL [Coreg] 3.125 mg PO BID 11/23/23
[2023-11-26] MEDS: POTASSIUM CHLORIDE 20 MEQ/15 ML UDC PO SCH (22:06)
[2023-11-27 06:40] LABS: ALBUMIN 3.2 g/dL (3.2-5.5); ALBUMIN/GLOBULIN RATIO 1.3 (1.0-2.2); BILIRUBIN,TOTAL 4.1 mg/dL (0.2-1.0); CALCIUM 8.3 mg/dL (8.5-10.3); CREATININE 0.9 mg/dL (0.6-1.3); POTASSIUM 3.6 mmol/L (3.5-4.5); TOTAL PROTEIN 5.7 g/dL (6.4-8.9)
[2023-11-27] MEDS: ALBUMIN 25% 12.5 GM/50 ML VIAL IV SCH (08:44)
--- NOTE | 2023-11-27 19:38 | PROVIDER PROGRESS NOTE ---
Assessment/Plan - Problem List (1) Acute hypoxemic respiratory failure Assessment/Plan: Etiology of hypoxemic respiratory failure is unknown and differential diagnosis would include cardiac dysfunction, liver disease and pulmonary hypertension. Plan: Continue diuresis with Lasix Continue albumin Echocardiogram ordered, but we only have [employer] Department Supervisor here Tues- (today is Tu) Continue to monitor serum potassium. (2) Anasarca Etiology of anasarca is not clear and may be secondary to heart failure, liver failure or a multifactorial process. Plan: As in #1 CT of abdomen/pelvis was planned. He could not fit on CT table. (3) Morbid Obesity BMI 40-44.9 This is partly from his anasarca. His weight complicates his care; CT scan cannot be done as he does not fit on CT table - Current Meds Current Meds: Current Medications Generic Name Dose Route Start Last Admin Trade Name Freq PRN Reason Stop Dose Admin Hydrocodone Bitart/Acetaminophen 1 tab 11/25/23 15:51 11/26/23 19:27 Hydrocod/Acetam 5/325 Mg Tablet PO 1 tab Q4HR PRN Administration Moderate Pain (Level 4-6) Heparin Sodium (Porcine) 5,000 unit 11/25/23 21:00 11/27/23 08:45 Heparin 5,000 Unit/Ml Vial SUBQ Not Given BID ILA Furosemide 40 mg/ Sodium 54 mls @ 27 mls/hr 11/25/23 17:00 11/27/23 19:31 Chloride IV Infused Q8H ILA Infusion Protocol Albumin Human 12.5 gm in 50 mls @ 50 mls/hr 11/25/23 18:00 11/27/23 19:31 Albuminar-25 IV Infused Q8H ILA Infusion Albumin Human 12.5 gm in 50 mls @ 50 mls/hr 11/27/23 09:00 11/27/23 18:09 Albuminar-25 IV Infused Q8H ILA Infusion Potassium Chloride 40 meq 11/25/23 16:17 11/27/23 08:41 Potassium Chloride 20 Meq/15 Ml Udc PO 40 meq DAILYWM ILA Administration Sodium Chloride 10 ml 11/25/23 17:00 11/27/23 17:03 Sodium Chloride Flush 0.9% 10 Ml Syringe IVP 10 ml 0100,0900,1700 ILA Administration Spironolactone 25 mg 11/25/23 21:27 11/27/23 08:42 Spironolactone 25 Mg Tablet PO 25 mg DAILY ILA Administration - Lab Result Fish Bone Diagrams: 11/25/23 10:46 11/27/23 05:47 Subjective - Subjective Patient Reports: Feeling Better (He is interested in being compliant with the fluid restriction, helping nurses count volumes) Objective Vital Signs: Vital Signs - 24 hr 11/27/23 11/27/23 00:26 14:00 Temperature 37.1 C 37.4 C Heart Rate [ 80 87 Brachial] Respiratory 20 20 Rate Blood Pressure 128/71 144/68 H [Right Brachial artery] O2 Saturation 90 L 91 L If not protocol 1 : Oxygen Flow, liters/minute Oxygen O2 Source Room air Oxygen Flow Rate 2 I&O (Last 24 Hrs): Intake and Output Totals x24h 11/25/23 11/26/23 11/27/23 23:59 23:59 23:59 Intake Total 1064 1286.953 1557.1 Output Total 1150 2600 2870 Balance -86 -1066.000 -1508.9 General: Alert, Oriented x3 HEENT: Mucous membr. moist/pink, Other (wearing O2 n.c.) Neck: Supple Neuro: Non Focal Cardiovascular: Regular rate Respiratory: No respiratory distress (on suppl O2) Abdomen: Soft, Other (distended, poss ascites) Extremities: Other (4+ edema to groin) - Results Results: Laboratory Results WBC 6.0 x10^3/uL (4.8-10.8) 11/25/23 10:46 RBC 3.54 10^6/uL (4.70-6.10) L 11/25/23 10:46 Hgb 11.1 g/dL (14.0-18.0) L 11/25/23 10:46 Hct 35.4 % (42.0-52.0) L 11/25/23 10:46 MCV 100.0 fL (80.0-94.0) H 11/25/23 10:46 MCH 31.4 pg (27.0-31.0) H 11/25/23 10:46 MCHC 31.4 g/dL (32.0-36.0) L 11/25/23 10:46 RDW 16.8 % (12.0-15.0) H 11/25/23 10:46 Plt Count 94 10^3/uL (130-450) L 11/25/23 10:46 MPV 9.3 fL (7.4-11.4) 11/25/23 10:46 Neut # (Auto) 3.9 10^3/uL (1.5-6.6) 11/25/23 10:46 Lymph # (Auto) 1.0 10^3/uL (1.5-3.5) L 11/25/23 10:46 [place] # (Auto) 0.9 10^3/uL (0.0-1.0) 11/25/23 10:46 Eos # (Auto) 0.1 10^3/uL (0.0-0.7) 11/25/23 10:46 Baso # (Auto) 0.0 10^3/uL (0.0-0.1) 11/25/23 10:46 Absolute Nucleated RBC 0.00 x10^3/uL 11/25/23 10:46 Nucleated RBC % 0.0 /100WBC 11/25/23 10:46 Sodium 141 mmol/L (135-145) 11/27/23 05:47 Potassium 3.6 mmol/L (3.5-4.5) 11/27/23 05:47 Chloride 108 mmol/L (101-111) 11/27/23 05:47 Carbon Dioxide 28 mmol/L (21-32) 11/27/23 05:47 Anion Gap 5.0 (6-13) L 11/27/23 05:47 BUN 28 mg/dL (6-20) H 11/27/23 05:47 Creatinine 0.9 mg/dL (0.6-1.3) 11/27/23 05:47 Estimated GFR (MDRD) 86 (>89) L 11/27/23 05:47 Glucose 88 mg/dL (74-104) 11/27/23 05:47 Calcium 8.3 mg/dL (8.5-10.3) L 11/27/23 05:47 Phosphorus 4.5 mg/dL (2.5-5.0) 11/26/23 04:39 Magnesium 1.6 mg/dL (1.7-2.3) L 11/26/23 04:39 Total Bilirubin 4.1 mg/dL (0.2-1.0) H 11/27/23 05:47 AST 21 IU/L (10-42) 11/27/23 05:47 ALT 15 IU/L (10-60) 11/27/23 05:47 Alkaline Phosphatase 101 IU/L (42-121) 11/27/23 05:47 Troponin I High Sens 5.1 ng/L (2.3-19.7) 11/25/23 10:46 B-Natriuretic Peptide 143 pg/mL (5-100) H 11/25/23 10:46 Total Protein 5.7 g/dL (6.4-8.9) L 11/27/23 05:47 Albumin 3.2 g/dL (3.2-5.5) 11/27/23 05:47 Globulin 2.5 g/dL (2.1-4.2) 11/27/23 05:47 Albumin/Globulin Ratio 1.3 (1.0-2.2) 11/27/23 05:47 Lipase 347 U/L (11-82) H 11/25/23 10:46
[2023-11-28] MEDS: polyethylene glycoL 3350 17 GM PACKET PO SCH (08:59)
--- NOTE | 2023-11-28 15:29 | PROVIDER PROGRESS NOTE ---
Assessment/Plan - Problem List (1) Acute hypoxemic respiratory failure Assessment/Plan: Etiology of hypoxemic respiratory failure is unknown and differential diagnosis would include cardiac dysfunction, liver disease and pulmonary hypertension. His Echo is now completed and it shows that he has normal LV systolic function and no pulmonary hypertension. We have been able to wean down the supplemental O2 from 5 L down to 1 L, As he has been diuresing a lot Plan: I will start transitioning his Lasix from IV every 8 hours to just IV BIDdiuretics I will stop his 3 times a day albumin infusions. Check a.m. Alb on labs Continue to try to wean down his supplemental O2 Recheck CXR (2) Anasarca Etiology of anasarca is not clear. We were working him up for heart failure, liver failure or a multifactorial process. The Echo was done and shows that he has a normal LV systolic function. Today I asked him more in depth questions and got details about his alcohol use. He drinks a box of wine a night. In addition he drinks 2 L of water per day and 1 tray of ice that melts down per day. Here he has been getting Lasix IV every 8 hours and albumin IV every 8 hours. His fluid balance is about -5 L since admission. Legs are showing "wrinkling" Plan: As in #1 I will increase spironolactone from 25 mg daily to [address] of abdomen/pelvis was planned. He could not fit on CT table. Today I educated him about excessive alcohol intake and excessive fluid intake. He understands and he is very compliant with the strict fluid restriction while he is here, which is 1500 cc per day. (3) Morbid Obesity BMI 40-44.9 This is partly from his anasarca. His weight complicates his care; CT scan cannot be done as he does not fit on CT table (4) Alcohol abuse Today I asked more in depth questions and got details about his alcohol use. He drinks a box of wine a night. Plan: He has been here over 72 hours therefore I will not start a [facility] protocol re: alcohol withdrawal now I will start daily thiamine orally I will request social work consult regarding alcohol abuse - Current Meds Current Meds: Current Medications Generic Name Dose Route Start Last Admin Trade Name Freq PRN Reason Stop Dose Admin Hydrocodone Bitart/Acetaminophen 1 tab 11/25/23 15:51 11/28/23 12:52 Hydrocod/Acetam 5/325 Mg Tablet PO 1 tab Q4HR PRN Administration Moderate Pain (Level 4-6) Heparin Sodium (Porcine) 5,000 unit 11/25/23 21:00 11/28/23 09:02 Heparin 5,000 Unit/Ml Vial SUBQ Not Given BID ILA Polyethylene Glycol 17 gm 11/28/23 09:00 11/28/23 08:59 Polyethylene Glycol 3350 17 Gm Packet PO 17 gm DAILY ILA Administration Potassium Chloride 40 meq 11/25/23 16:17 11/28/23 09:03 Potassium Chloride 20 Meq/15 Ml Udc PO 40 meq DAILYWM ILA Administration Sodium Chloride 10 ml 11/25/23 17:00 11/28/23 09:03 Sodium Chloride Flush 0.9% 10 Ml Syringe IVP 10 ml 0100,0900,1700 ILA Administration - Lab Result Fish Bone Diagrams: 11/25/23 10:46 11/27/23 05:47 - Additional Planning My Orders: My Active Orders 11/28/23 Dinner DIET [Low Sodium Diet] [DIET] 11/29/23 05:00 BMP - BASIC METABOLIC PANEL [CHEM] DAILYLAB CBC - COMP BLD CT W/AUTO DIFF [HEME] DAILYLAB MAGNESIUM [CHEM] DAILYLAB 11/29/23 06:00 FUROSEMIDE INJ 40mg VIAL [LASIX INJ 40 mg VIAL] 40 mg IVP BIDDIURETIC 11/29/23 09:00 Spironolactone [Aldactone] 50 mg PO DAILY Subjective - Subjective Patient Reports: Feeling Better (He can see that his leg swelling is shrinking and abdomen is not as taut) Objective Vital Signs: Vital Signs - 24 hr 11/27/23 11/27/23 11/28/23 21:00 21:30 00:10 Temperature 37.6 C 37.4 C Heart Rate [ 82 84 Brachial] Respiratory 16 18 Rate Blood Pressure 141/73 H 149/76 H [Right Brachial artery] O2 Saturation 89 L 92 If not protocol 1 1 : Oxygen Flow, liters/minute 11/28/23 11/28/23 11:40 13:36 Temperature 37.4 C Heart Rate [ 87 Brachial] Respiratory 20 Rate Blood Pressure 138/74 H [Right Brachial artery] O2 Saturation 93 If not protocol 1 1 : Oxygen Flow, liters/minute Oxygen O2 Source Nasal cannula Oxygen Flow Rate 2 I&O (Last 24 Hrs): Intake and Output Totals x24h 11/26/23 11/27/23 11/28/23 23:59 23:59 23:59 Intake Total 6661.715 8093.1 858 Output Total 2600 4070 3450 Balance -1066.000 -2108.9 -2592 General: Alert, Oriented x3, No acute distress HEENT: Mucous membr. moist/pink, Other (wearing O2 n.c.) Neck: Supple Neuro: Alert, Non Focal, Other (His answers and speech is "pressured") Cardiovascular: Regular rate, No murmurs Respiratory: No respiratory distress, Breath sounds nml Abdomen: Soft, Other (Moderately to severely distended, soft, possible ascites, I cannot rule out organomegaly, nontender) Extremities: Other (3+ pitting edema to the thighs) - Results Results: Laboratory Results WBC 6.0 x10^3/uL (4.8-10.8) 11/25/23 10:46 RBC 3.54 10^6/uL (4.70-6.10) L 11/25/23 10:46 Hgb 11.1 g/dL (14.0-18.0) L 11/25/23 10:46 Hct 35.4 % (42.0-52.0) L 11/25/23 10:46 MCV 100.0 fL (80.0-94.0) H 11/25/23 10:46 MCH 31.4 pg (27.0-31.0) H 11/25/23 10:46 MCHC 31.4 g/dL (32.0-36.0) L 11/25/23 10:46 RDW 16.8 % (12.0-15.0) H 11/25/23 10:46 Plt Count 94 10^3/uL (130-450) L 11/25/23 10:46 MPV 9.3 fL (7.4-11.4) 11/25/23 10:46 Neut # (Auto) 3.9 10^3/uL (1.5-6.6) 11/25/23 10:46 Lymph # (Auto) 1.0 10^3/uL (1.5-3.5) L 11/25/23 10:46 [place] # (Auto) 0.9 10^3/uL (0.0-1.0) 11/25/23 10:46 Eos # (Auto) 0.1 10^3/uL (0.0-0.7) 11/25/23 10:46 Baso # (Auto) 0.0 10^3/uL (0.0-0.1) 11/25/23 10:46 Absolute Nucleated RBC 0.00 x10^3/uL 11/25/23 10:46 Nucleated RBC % 0.0 /100WBC 11/25/23 10:46 Sodium 141 mmol/L (135-145) 11/27/23 05:47 Potassium 3.6 mmol/L (3.5-4.5) 11/27/23 05:47 Chloride 108 mmol/L (101-111) 11/27/23 05:47 Carbon Dioxide 28 mmol/L (21-32) 11/27/23 05:47 Anion Gap 5.0 (6-13) L 11/27/23 05:47 BUN 28 mg/dL (6-20) H 11/27/23 05:47 Creatinine 0.9 mg/dL (0.6-1.3) 11/27/23 05:47 Estimated GFR (MDRD) 86 (>89) L 11/27/23 05:47 Glucose 88 mg/dL (74-104) 11/27/23 05:47 Calcium 8.3 mg/dL (8.5-10.3) L 11/27/23 05:47 Phosphorus 4.5 mg/dL (2.5-5.0) 11/26/23 04:39 Magnesium 1.6 mg/dL (1.7-2.3) L 11/26/23 04:39 Total Bilirubin 4.1 mg/dL (0.2-1.0) H 11/27/23 05:47 AST 21 IU/L (10-42) 11/27/23 05:47 ALT 15 IU/L (10-60) 11/27/23 05:47 Alkaline Phosphatase 101 IU/L (42-121) 11/27/23 05:47 Troponin I High Sens 5.1 ng/L (2.3-19.7) 11/25/23 10:46 B-Natriuretic Peptide 143 pg/mL (5-100) H 11/25/23 10:46 Total Protein 5.7 g/dL (6.4-8.9) L 11/27/23 05:47 Albumin 3.2 g/dL (3.2-5.5) 11/27/23 05:47 Globulin 2.5 g/dL (2.1-4.2) 11/27/23 05:47 Albumin/Globulin Ratio 1.3 (1.0-2.2) 11/27/23 05:47 Lipase 347 U/L (11-82) H 11/25/23 10:46
[2023-11-28] MEDS: carvediloL 3.125 MG TABLET PO SCH (21:33)
[2023-11-29] MEDS: FUROSEMIDE 40 MG/4 ML VIAL IVP SCH (05:23)
[2023-11-29 05:38] LABS: HCT - HEMATOCRIT 35.1 % (42.0-52.0); HGB - HEMOGLOBIN 11.1 g/dL (14.0-18.0); MEAN CORPUSCULAR HEMOGLOBIN 31.8 pg (27.0-31.0); MEAN CORPUSCULAR HGB CONC 31.6 g/dL (32.0-36.0); MEAN CORPUSCULAR VOLUME 100.6 fL (80.0-94.0); MEAN PLATELET VOLUME 8.9 fL (7.4-11.4); RED BLOOD COUNT 3.49 10^6/uL (4.70-6.10); WHITE BLOOD COUNT 4.9 x10^3/uL (4.8-10.8)
[2023-11-29 05:49] LABS: CALCIUM 8.8 mg/dL (8.5-10.3); CREATININE 0.6 mg/dL (0.6-1.3); MAGNESIUM 1.7 mg/dL (1.7-2.3); POTASSIUM 4.1 mmol/L (3.5-4.5)
[2023-11-29] MEDS: PRENATAL VITAMIN TABLET PO SCH (08:35)
[2023-11-29] MEDS: SPIRONOLACTONE 25 MG TABLET PO SCH (08:35)
[2023-11-29] MEDS: THIAMINE 100 MG TABLET PO SCH (08:35)
--- NOTE | 2023-11-29 09:13 | XRAY Report ---
PROCEDURE: Chest 1V INDICATIONS: F/U CHF TECHNIQUE: One view of the chest was acquired. COMPARISON: None. FINDINGS: Surgical changes and devices: None. Lungs and pleura: Moderate right-sided pleural effusion with right-sided atelectasis. Mediastinum: Mediastinal contours appear normal. Heart size is enlarged. Bones and chest wall: No suspicious bony lesions. Overlying soft tissues appear unremarkable. IMPRESSION: Moderate right-sided pleural effusion with atelectasis. Reviewed by: Chase Shultz MD on 11/29/2023 9:11 AM PST Approved by: Chase Shultz MD on 11/29/2023 9:11 AM PST Station ID: [id number]
--- NOTE | 2023-11-29 18:23 | PROVIDER PROGRESS NOTE ---
Assessment/Plan - Problem List (1) Acute hypoxemic respiratory failure Assessment/Plan: Etiology of hypoxemic respiratory failure is unknown and differential diagnosis would include cardiac dysfunction, liver disease and pulmonary hypertension. His Echo is now completed and it shows that he has normal LV systolic function and no pulmonary hypertension. We have been able to wean down the supplemental O2 from 5 L down to 1 L, since he has been diuresing a lot Rechecked CXR today and it showed moder R pleural effusion Plan: Cont transitioning his IV Lasix from every 8 hours to IV BID diuretics today the n once daily tomorrow Remain off the 3 times a day albumin infusions. Continue to try to wean down his supplemental O2 Will see if the pleural effusion size can be tapped (2) Anasarca Etiology of anasarca is not clear. We were working him up for heart failure, liver failure or a multifactorial process. The Echo was done and shows that he has a normal LV systolic function. Today I asked him more in depth questions and got details about his alcohol use. He drinks a box of wine a night. In addition he drinks 2 L of water per day and 1 tray of ice that melts down per day. Here he has been getting Lasix IV every 8 hours and albumin IV every 8 hours. His fluid balance is about -5 L since admission. Legs are showing "wrinkling" Plan: As in #1 Cont higher spironolactone dose of [address] of abdomen/pelvis was planned. He could not fit on CT table. I educated him about excessive alcohol intake and excessive fluid intake. He understands and he is very compliant with the strict fluid restriction while he is here, which is 1800 cc per day. (3) Morbid Obesity BMI 40-44.9 This is partly from his anasarca. His weight complicates his care; CT scan cannot be done as he does not fit on CT table (4) Alcohol abuse I asked more in depth questions and got details about his alcohol use. He drinks a box of wine a night. Plan: He has been here over 72 hours therefore I will not start a [facility] protocol re: alcohol withdrawal now Cont daily thiamine orally I will request social work consult regarding alcohol abuse - Current Meds Current Meds: Current Medications Generic Name Dose Route Start Last Admin Trade Name Freq PRN Reason Stop Dose Admin Carvedilol 3.125 mg 11/28/23 21:00 11/29/23 08:35 Carvedilol 3.125 Mg Tablet PO 3.125 mg BID ILA Administration Heparin Sodium (Porcine) 5,000 unit 11/25/23 21:00 11/29/23 08:35 Heparin 5,000 Unit/Ml Vial SUBQ Not Given BID ILA Polyethylene Glycol 17 gm 11/28/23 09:00 11/29/23 08:36 Polyethylene Glycol 3350 17 Gm Packet PO Not Given DAILY ILA Potassium Chloride 40 meq 11/25/23 16:17 11/29/23 08:34 Potassium Chloride 20 Meq/15 Ml Udc PO 40 meq DAILYWM ILA Administration Multivit/Folic Acid/Iron 1 tab 11/29/23 08:00 11/29/23 08:35 Vitamin Tablet PO 1 tab DAILYWM ILA Administration Sodium Chloride 10 ml 11/25/23 17:00 11/29/23 08:36 Sodium Chloride Flush 0.9% 10 Ml Syringe IVP 10 ml 0100,0900,1700 ILA Administration Spironolactone 50 mg 11/29/23 09:00 11/29/23 08:35 Spironolactone 25 Mg Tablet PO 50 mg DAILY ILA Administration Thiamine HCl 100 mg 11/29/23 09:00 11/29/23 08:35 Thiamine 100 Mg Tablet PO 100 mg DAILY ILA Administration - Lab Result Fish Bone Diagrams: 11/29/23 05:20 11/29/23 05:20 - Additional Planning My Orders: My Active Orders 11/28/23 21:00 carvediloL [Coreg] 3.125 mg PO BID 11/29/23 08:00 Vitamin [Trinatal Rx 1] 1 tab PO DAILYWM 11/29/23 09:00 Spironolactone [Aldactone] 50 mg PO DAILY Thiamine [Vitamin B-1] 100 mg PO DAILY 11/30/23 09:00 FUROSEMIDE INJ 40mg VIAL [LASIX INJ 40 mg VIAL] 40 mg IVP DAILY Subjective - Subjective Patient Reports: Other (Unchanged edema) Nursing Reports: Other (His RN reports that his scrotum was the size of a basketball when he was admitted and is now the size of an orange. Cook is still inserted and the patient would like it left in for another day or 2.) Objective Vital Signs: Vital Signs - 24 hr 11/28/23 11/28/23 11/28/23 21:31 22:30 23:55 Temperature 37.1 C 37.0 C Heart Rate [ 80 71 Brachial] Respiratory 16 20 Rate Blood Pressure 137/72 H 132/70 H [Right Brachial artery] O2 Saturation 92 92 If not protocol 1 1 1 : Oxygen Flow, liters/minute 11/29/23 11/29/23 11/29/23 07:37 07:40 15:49 Temperature 36.7 C 37.3 C Heart Rate [ 73 74 Brachial] Respiratory 20 16 Rate Blood Pressure 132/68 H 128/66 [Right Brachial artery] O2 Saturation 90 L 91 L If not protocol 1 1 1 : Oxygen Flow, liters/minute Oxygen O2 Source Nasal cannula Oxygen Flow Rate 2 I&O (Last 24 Hrs): Intake and Output Totals x24h 11/27/23 11/28/23 11/29/23 23:59 23:59 23:59 Intake Total 1961.1 1458 Output Total 4070 4200 3700 Balance -2108.9 -7422 -3700 General: Alert, Oriented x3, Other (morbidly obese) HEENT: EOMI, Mucous membr. moist/pink Neck: Supple Neuro: Alert, Non Focal Cardiovascular: Regular rate Respiratory: No respiratory distress Abdomen: Other (Obese with pannus) Extremities: Other (3+ edema to the groin. Verucous tense skin of his shins.) - Results Results: Laboratory Results WBC 4.9 x10^3/uL (4.8-10.8) 11/29/23 05:20 RBC 3.49 10^6/uL (4.70-6.10) L 11/29/23 05:20 Hgb 11.1 g/dL (14.0-18.0) L 11/29/23 05:20 Hct 35.1 % (42.0-52.0) L 11/29/23 05:20 MCV 100.6 fL (80.0-94.0) H 11/29/23 05:20 MCH 31.8 pg (27.0-31.0) H 11/29/23 05:20 MCHC 31.6 g/dL (32.0-36.0) L 11/29/23 05:20 RDW 16.0 % (12.0-15.0) H 11/29/23 05:20 Plt Count 70 10^3/uL (130-450) L 11/29/23 05:20 MPV 8.9 fL (7.4-11.4) 11/29/23 05:20 Neut # (Auto) 3.9 10^3/uL (1.5-6.6) 11/25/23 10:46 Lymph # (Auto) 1.0 10^3/uL (1.5-3.5) L 11/25/23 10:46 [place] # (Auto) 0.9 10^3/uL (0.0-1.0) 11/25/23 10:46 Eos # (Auto) 0.1 10^3/uL (0.0-0.7) 11/25/23 10:46 Baso # (Auto) 0.0 10^3/uL (0.0-0.1) 11/25/23 10:46 Absolute Nucleated RBC 0.00 x10^3/uL 11/25/23 10:46 Nucleated RBC % 0.0 /100WBC 11/25/23 10:46 Sodium 138 mmol/L (135-145) 11/29/23 05:20 Potassium 4.1 mmol/L (3.5-4.5) 11/29/23 05:20 Chloride 105 mmol/L (101-111) 11/29/23 05:20 Carbon Dioxide 30 mmol/L (21-32) 11/29/23 05:20 Anion Gap 3.0 (6-13) L 11/29/23 05:20 BUN 20 mg/dL (6-20) 11/29/23 05:20 Creatinine 0.6 mg/dL (0.6-1.3) 11/29/23 05:20 Estimated GFR (MDRD) 137 (>89) 11/29/23 05:20 Glucose 85 mg/dL (74-104) 11/29/23 05:20 Calcium 8.8 mg/dL (8.5-10.3) 11/29/23 05:20 Phosphorus 4.5 mg/dL (2.5-5.0) 11/26/23 04:39 Magnesium 1.7 mg/dL (1.7-2.3) 11/29/23 05:20 Total Bilirubin 4.1 mg/dL (0.2-1.0) H 11/27/23 05:47 AST 21 IU/L (10-42) 11/27/23 05:47 ALT 15 IU/L (10-60) 11/27/23 05:47 Alkaline Phosphatase 101 IU/L (42-121) 11/27/23 05:47 Troponin I High Sens 5.1 ng/L (2.3-19.7) 11/25/23 10:46 B-Natriuretic Peptide 249 pg/mL (5-100) H 11/29/23 05:20 Total Protein 5.7 g/dL (6.4-8.9) L 11/27/23 05:47 Albumin 3.3 g/dL (3.2-5.5) 11/29/23 05:20 Globulin 2.5 g/dL (2.1-4.2) 11/27/23 05:47 Albumin/Globulin Ratio 1.3 (1.0-2.2) 11/27/23 05:47 Lipase 347 U/L (11-82) H 11/25/23 10:46 Vitamin B12 777 pg/mL (180-914) 11/29/23 05:20 Folate 5.6 ng/mL (5.90 - >24.8) L 11/29/23 05:20
[2023-11-29] MEDS: ACETAMINOPHEN 325 MG TABLET PO PRN (22:22)
[2023-11-30] MEDS: FUROSEMIDE 40 MG/4 ML VIAL IVP SCH (09:14)
--- NOTE | 2023-11-30 11:10 | PROVIDER PROGRESS NOTE ---
Assessment/Plan - Problem List (1) Acute hypoxemic respiratory failure Assessment/Plan: Etiology of hypoxemic respiratory failure is unknown and differential diagnosis would include cardiac dysfunction, liver disease and pulmonary hypertension. His Echo showed normal LV systolic function and no pulmonary hypertension. Rechecked CXR on 11/29/23 and it showed moder R pleural effusion We have been able to wean down the supplemental O2 from 5 L down to room air overnight, since he has been diuresing a lot. However today his O2 needs went up to 3L (VS were all reviewed) Plan: Cont transitioning his IV Lasix from every 8 hours to IV BID diuretics today then once daily tomorrow I ordered US work-up for thoracentesis of the pleural effusion Continue to try to wean down his supplemental O2 (2) Pleural effusion Thoracentesis under ultrasound guidance was ordered to be done today>> 2L removed by IR today Plan: Will send for standard testing of his pleural fluid (3) Anasarca Etiology of anasarca is not clear. We were working him up for heart failure, l iver failure or a multifactorial process. The Echo was done and shows that he has a normal LV systolic function. I got details about his alcohol use. He drinks a box of wine a night. In addition he drinks 2 L of water per day and 1 tray of ice that melts down per day. Here he was getting Lasix IV every 8 hours and albumin IV every 8 hours. His fluid balance is about -8 L since admission. Legs are smaller, scrotum is smaller. I educated him about excessive alcohol intake and excessive fluid intake. He understands and he is very compliant with the strict fluid restriction while he is here, which is 1800 cc per day. Plan: Cont iv loop diuretic Cont higher spironolactone dose of [address] of abdomen/pelvis was planned. He could not fit on CT table. (4) Alcohol abuse I asked more in depth questions and got details about his alcohol use. He drinks a box of wine a night. Plan: He has been here over 72 hours therefore I will not start a [facility] protocol re: a lcohol withdrawal now Cont daily thiamine orally. Will add MOV daily I will request social work consult regarding alcohol abuse (5) Morbid Obesity BMI 40-44.9 This is partly from his anasarca. His weight complicates his care; CT scan cannot be done as he does not fit on CT table - Current Meds Current Meds: Current Medications Generic Name Dose Route Start Last Admin Trade Name Freq PRN Reason Stop Dose Admin Acetaminophen 650 mg 11/29/23 22:09 11/30/23 02:15 Acetaminophen 325 Mg Tablet PO 650 mg Q4HR PRN Administration Pain or Fever > 38C (100.4F) Carvedilol 3.125 mg 11/28/23 21:00 11/30/23 09:13 Carvedilol 3.125 Mg Tablet PO 3.125 mg BID ILA Administration Furosemide 40 mg 11/30/23 09:00 11/30/23 09:14 Furosemide 40 Mg/4 Ml Vial IVP 40 mg DAILY ILA Administration Heparin Sodium (Porcine) 5,000 unit 11/25/23 21:00 11/30/23 10:56 Heparin 5,000 Unit/Ml Vial SUBQ Not Given BID ILA Polyethylene Glycol 17 gm 11/28/23 09:00 11/30/23 09:15 Polyethylene Glycol 3350 17 Gm Packet PO 17 gm DAILY ILA Administration Potassium Chloride 40 meq 11/25/23 16:17 11/30/23 09:32 Potassium Chloride 20 Meq/15 Ml Udc PO 40 meq DAILYWM ILA Administration Multivit/Folic Acid/Iron 1 tab 11/29/23 08:00 11/30/23 09:13 Vitamin Tablet PO 1 tab DAILYWM ILA Administration Sodium Chloride 10 ml 11/25/23 17:00 11/30/23 09:25 Sodium Chloride Flush 0.9% 10 Ml Syringe IVP 10 ml 0100,0900,1700 ILA Administration Spironolactone 50 mg 11/29/23 09:00 11/30/23 09:14 Spironolactone 25 Mg Tablet PO 50 mg DAILY ILA Administration Thiamine HCl 100 mg 11/29/23 09:00 11/30/23 09:14 Thiamine 100 Mg Tablet PO 100 mg DAILY ILA Administration - Lab Result Fish Bone Diagrams: 11/29/23 05:20 11/29/23 05:20 - Additional Planning My Orders: My Active Orders 11/30/23 08:00 Thoracentesis Puncture [US] Routine 11/30/23 09:00 FUROSEMIDE INJ 40mg VIAL [LASIX INJ 40 mg VIAL] 40 mg IVP DAILY Subjective - Subjective Patient Reports: Shortness of Breath (Nose feels dry and therefore feels congested.) Nursing Reports: Other (He needed increased supplemental O2 this morning with more shortness of breath) Objective Vital Signs: Vital Signs - 24 hr 11/29/23 11/29/23 11/30/23 15:49 20:10 06:00 Temperature 37.3 C 37.1 C Heart Rate [ 74 Brachial] Heart Rate [ 71 Monitoring electrodes] Respiratory 16 18 Rate Blood Pressure 128/66 131/58 H [Right Brachial artery] O2 Saturation 91 L If not protocol 1 1 : Oxygen Flow, liters/minute 11/30/23 07:27 Temperature 37.2 C Heart Rate [ 78 Brachial] Heart Rate [ Monitoring electrodes] Respiratory 20 Rate Blood Pressure 119/57 L [Right Brachial artery] O2 Saturation 85 L If not protocol 1 : Oxygen Flow, liters/minute Oxygen O2 Source Nasal cannula Oxygen Flow Rate 2 I&O (Last 24 Hrs): Intake and Output Totals x24h 11/28/23 11/29/23 11/30/23 23:59 23:59 23:59 Intake Total 1458 400 Output Total 4200 4775 300 Balance -0878 -5152 -300 General: Alert, Oriented x3 HEENT: Mucous membr. moist/pink, Other (weariong O2 n.c.) Neck: Supple, Other (Obese) Neuro: Alert, Non Focal Cardiovascular: No murmurs (distant heart sounds due to morbid obesity) Respiratory: No respiratory distress (at rest, on suppl O2), Rales (L base, diminished breath sounds R base) Abdomen: Other (Obese with pannus) Extremities: Other (3+ edema nd verucous shins) - Results Results: Laboratory Results WBC 4.9 x10^3/uL (4.8-10.8) 11/29/23 05:20 RBC 3.49 10^6/uL (4.70-6.10) L 11/29/23 05:20 Hgb 11.1 g/dL (14.0-18.0) L 11/29/23 05:20 Hct 35.1 % (42.0-52.0) L 11/29/23 05:20 MCV 100.6 fL (80.0-94.0) H 11/29/23 05:20 MCH 31.8 pg (27.0-31.0) H 11/29/23 05:20 MCHC 31.6 g/dL (32.0-36.0) L 11/29/23 05:20 RDW 16.0 % (12.0-15.0) H 11/29/23 05:20 Plt Count 70 10^3/uL (130-450) L 11/29/23 05:20 MPV 8.9 fL (7.4-11.4) 11/29/23 05:20 Neut # (Auto) 3.9 10^3/uL (1.5-6.6) 11/25/23 10:46 Lymph # (Auto) 1.0 10^3/uL (1.5-3.5) L 11/25/23 10:46 [place] # (Auto) 0.9 10^3/uL (0.0-1.0) 11/25/23 10:46 Eos # (Auto) 0.1 10^3/uL (0.0-0.7) 11/25/23 10:46 Baso # (Auto) 0.0 10^3/uL (0.0-0.1) 11/25/23 10:46 Absolute Nucleated RBC 0.00 x10^3/uL 11/25/23 10:46 Nucleated RBC % 0.0 /100WBC 11/25/23 10:46 Sodium 138 mmol/L (135-145) 11/29/23 05:20 Potassium 4.1 mmol/L (3.5-4.5) 11/29/23 05:20 Chloride 105 mmol/L (101-111) 11/29/23 05:20 Carbon Dioxide 30 mmol/L (21-32) 11/29/23 05:20 Anion Gap 3.0 (6-13) L 11/29/23 05:20 BUN 20 mg/dL (6-20) 11/29/23 05:20 Creatinine 0.6 mg/dL (0.6-1.3) 11/29/23 05:20 Estimated GFR (MDRD) 137 (>89) 11/29/23 05:20 Glucose 85 mg/dL (74-104) 11/29/23 05:20 Calcium 8.8 mg/dL (8.5-10.3) 11/29/23 05:20 Phosphorus 4.5 mg/dL (2.5-5.0) 11/26/23 04:39 Magnesium 1.7 mg/dL (1.7-2.3) 11/29/23 05:20 Total Bilirubin 4.1 mg/dL (0.2-1.0) H 11/27/23 05:47 AST 21 IU/L (10-42) 11/27/23 05:47 ALT 15 IU/L (10-60) 11/27/23 05:47 Alkaline Phosphatase 101 IU/L (42-121) 11/27/23 05:47 Troponin I High Sens 5.1 ng/L (2.3-19.7) 11/25/23 10:46 B-Natriuretic Peptide 249 pg/mL (5-100) H 11/29/23 05:20 Total Protein 5.7 g/dL (6.4-8.9) L 11/27/23 05:47 Albumin 3.3 g/dL (3.2-5.5) 11/29/23 05:20 Globulin 2.5 g/dL (2.1-4.2) 11/27/23 05:47 Albumin/Globulin Ratio 1.3 (1.0-2.2) 11/27/23 05:47 Lipase 347 U/L (11-82) H 11/25/23 10:46 Vitamin B12 777 pg/mL (180-914) 11/29/23 05:20 Folate 5.6 ng/mL (5.90 - >24.8) L 11/29/23 05:20
--- NOTE | 2023-11-30 13:33 | XRAY Report ---
PROCEDURE: Post Thoracentesis 1V CXR INDICATIONS: Pleural Effusion TECHNIQUE: One view of the chest was acquired. COMPARISON: Chest x-ray 11/29/2023 FINDINGS: Surgical changes and devices: None. Lungs and pleura: Right effusion. No pneumothorax status post thoracentesis. Mediastinum: Mediastinal contours appear normal. Heart size is enlarged. Bones and chest wall: No suspicious bony lesions. Overlying soft tissues appear unremarkable. IMPRESSION: No pneumothorax status post thoracentesis. Reviewed by: Ysabel Soto MD on 11/30/2023 1:31 PM PST Approved by: Ysabel Soto MD on 11/30/2023 1:31 PM [facility] Station ID: [id number]
[2023-11-30 13:39] LABS: BF CLARITY TURBID
[2023-11-30 13:40] LABS: BF COLOR STRAW
[2023-11-30 13:41] LABS: CC,BF WBC 716 /mm^3
[2023-11-30 13:55] LABS: CC,BF RBC 12000 /mm^3
[2023-11-30 14:30] LABS: BF SOURCE PLEURAL
[2023-11-30] MEDS ORDERED: MIN OIL/DIMETHICON/COCONUT OIL 92 GM TUBE TOP PRN (17:06)
[2023-11-30] MEDS: MAGNESIUM OXIDE 400 MG TABLET PO SCH (17:36)
[2023-12-01 05:41] LABS: HCT - HEMATOCRIT 34.2 % (42.0-52.0); HGB - HEMOGLOBIN 10.7 g/dL (14.0-18.0); MEAN CORPUSCULAR HEMOGLOBIN 31.3 pg (27.0-31.0); MEAN CORPUSCULAR HGB CONC 31.3 g/dL (32.0-36.0); MEAN PLATELET VOLUME 9.5 fL (7.4-11.4); RED BLOOD COUNT 3.42 10^6/uL (4.70-6.10); RED CELL DISTRIBUTION WIDTH 15.8 % (12.0-15.0); WHITE BLOOD COUNT 4.3 x10^3/uL (4.8-10.8)
[2023-12-01 06:00] LABS: CALCIUM 8.6 mg/dL (8.5-10.3); CREATININE 0.6 mg/dL (0.6-1.3); MAGNESIUM 1.8 mg/dL (1.7-2.3); PHOSPHORUS 2.9 mg/dL (2.5-5.0); POTASSIUM 4.4 mmol/L (3.5-4.5)
--- NOTE | 2023-12-01 08:23 | Ultrasound Report ---
PROCEDURE: Thoracentesis Puncture INDICATIONS: R pleural effusion TECHNIQUE: The indications, alternatives, benefits, risks, and complications of the procedure were explained to the patient. Written informed consent was obtained and placed in the chart. The chest was examined sonographically, and an appropriate site was chosen for thoracentesis. The skin was prepared and catarina ped in the usual sterile fashion, and 1% lidocaine was infiltrated from the skin down through the ple ural surface. A 19-gauge catheter-covered needle was then introduced into the pleural space, the cat heter was advanced and the needle was withdrawn, and thereafter pleural fluid was aspirated. The cat heter was then removed and a dressing was applied. COMPARISON: None. FINDINGS: Access site: right hemithorax. Needle: One-Step centesis catheter with introducer needle. Fluid volume and description: 1900 mL, lizett colored Fluid sent for diagnostic testing: per referring physician. Medications: 1% lidocaine for local anaesthesia. Complications: None; post-procedural chest radiograph is pending to assess for pneumothorax. IMPRESSION: Successful ultrasound-guided thoracentesis. Reviewed by: Yoseph Moss MD on 12/01/2023 8:22 AM [facility] Approved by: Yoseph Moss MD on 12/01/2023 8:22 AM PST Station ID: [id number]
[2023-12-01 09:11] LABS: % IRON SATURATION 44 % (20-50); IRON 94 ug/dL (50-212); TOTAL IRON BINDING CAPACITY 213 ug/dL (250-450); TRANSFERRIN 152 mg/dL (203-362)
--- NOTE | 2023-12-01 14:56 | PROVIDER PROGRESS NOTE ---
Assessment/Plan - Problem List (1) Acute hypoxemic respiratory failure Assessment/Plan: Etiology of hypoxemic respiratory failure is unknown and differential diagnosis would include cardiac dysfunction, liver disease and pulmonary hypertension. His Echo showed normal LV systolic function and no pulmonary hypertension. Rechecked CXR on 11/29/23 and it showed moder R pleural effusion We have been able to wean down the supplemental O2 from 5 L down to room air overnight, since he has been diuresing a lot. However today his O2 needs went up to 3L (VS were all reviewed) Plan: Cont Lasix IV BID diuretics today then once daily staring today, watching I's and O's Continue to try to wean down his supplemental O2 (2) Pleural effusion Assessment/Plan: Thoracentesis under ultrasound guidance was done 11/30/23>> 2L removed by IR Testing of his pleural fluid showed it was straw colored, turbid, some WBCs, no growth so far, but no protein or glu or LDH resulted yet Plan: Cont diuresis Await fluid results (3) Anasarca Assessment/Plan: Etiology of anasarca is not clear. We were working him up for heart failure, liver failure or a multifactorial process. The Echo was done and shows that he has a normal LV systolic function. I got details about his alcohol use. He drinks a box of wine a night. In addition he drinks 2 L of water per day and 1 tray of ice that melts down per day. Here he was getting Lasix IV every 8 hours and albumin IV every 8 hours. His fluid balance is about -8 L since admission. Legs are smaller, scrotum is smaller. I educated him about excessive alcohol intake and excessive fluid intake. He und erstands and he is very compliant with the strict fluid restriction while he is here, which is 1800 cc per day. Plan: Cont Lasix IV BID diuretics today then once daily staring today, watching I's and O's Cont higher spironolactone dose of [address] of abdomen/pelvis was planned. He could not fit on CT table. (4) Urethral meatus pain Assessment/Plan: The very tip of urethral opening is red and is tender when Cook is moved. Penis is still edematous but has decreased, and pt requests we leave in the Cook yet. Plan: Will order topical Neomycin/Bacitracin BID and Lido jelly 2& QID applied to meatus (5) Alcohol abuse I asked more in depth questions and got details about his alcohol use. He drinks a box of wine a night. Plan: He has been here over 72 hours therefore I will not start a [facility] protocol re: alcohol withdrawal now Cont daily thiamine orally. Will add MOV daily I will request social work consult regarding alcohol abuse (6) Morbid Obesity BMI 40-44.9 This is partly from his anasarca. His weight complicates his care; CT scan cannot be done as he does not fit on CT table - Current Meds Current Meds: Current Medications Generic Name Dose Route Start Last Admin Trade Name Freq PRN Reason Stop Dose Admin Acetaminophen 650 mg 11/29/23 22:09 12/01/23 13:11 Acetaminophen 325 Mg Tablet PO 650 mg Q4HR PRN Administration Pain or Fever > 38C (100.4F) Carvedilol 3.125 mg 11/28/23 21:00 12/01/23 09:09 Carvedilol 3.125 Mg Tablet PO 3.125 mg BID ILA Administration Furosemide 40 mg 11/30/23 09:00 12/01/23 09:09 Furosemide 40 Mg/4 Ml Vial IVP 40 mg DAILY ILA Administration Heparin Sodium (Porcine) 5,000 unit 11/25/23 21:00 12/01/23 09:09 Heparin 5,000 Unit/Ml Vial SUBQ Not Given BID ILA Magnesium Oxide 400 mg 11/30/23 17:00 12/01/23 09:09 Magnesium Oxide 400 Mg Tablet PO 400 mg DAILYWM ILA Administration Polyethylene Glycol 17 gm 11/28/23 09:00 12/01/23 09:10 Polyethylene Glycol 3350 17 Gm Packet PO Not Given DAILY ILA Potassium Chloride 40 meq 11/25/23 16:17 12/01/23 09:08 Potassium Chloride 20 Meq/15 Ml Udc PO 40 meq DAILYWM ILA Administration Multivit/Folic Acid/Iron 1 tab 11/29/23 08:00 12/01/23 09:09 Vitamin Tablet PO 1 tab DAILYWM ILA Administration Sodium Chloride 10 ml 11/25/23 17:00 12/01/23 09:10 Sodium Chloride Flush 0.9% 10 Ml Syringe IVP 10 ml 0100,0900,1700 ILA Administration Spironolactone 50 mg 11/29/23 09:00 12/01/23 09:09 Spironolactone 25 Mg Tablet PO 50 mg DAILY ILA Administration Thiamine HCl 100 mg 11/29/23 09:00 12/01/23 09:09 Thiamine 100 Mg Tablet PO 100 mg DAILY ILA Administration - Lab Result Fish Bone Diagrams: 12/01/23 05:35 12/01/23 05:35 - Additional Planning My Orders: My Active Orders 11/30/23 17:00 Magnesium Oxide [Mag Ox] 400 mg PO DAILYWM 11/30/23 17:27 Sodium Chloride 0.65% [[place]] 2 sprays SUBHASH Q4HR PRN 12/01/23 15:00 Lidocaine Jelly 2% [[place]] 2 ml TOP QID 12/01/23 21:00 Neomyci/Bacitra/Poly Oint Pkt [Neosporin Oint Pkt] 1 packet TOP BID 12/02/23 05:00 BMP - BASIC METABOLIC PANEL [CHEM] DAILYLAB CBC W/O DIFF (HEMOGRAM) [HEME] DAILYLAB MAGNESIUM [CHEM] DAILYLAB 12/03/23 05:00 BMP - BASIC METABOLIC PANEL [CHEM] DAILYLAB Subjective - Subjective Patient Reports: Shortness of Breath, Other (edema slowly improving, penis still swollen and he wants Cook left in) Objective Vital Signs: Vital Signs - 24 hr 11/30/23 11/30/23 11/30/23 15:08 19:20 22:00 Temperature 37 C 36.4 C L Heart Rate [ 65 95 Brachial] Respiratory 16 20 Rate Blood Pressure 113/57 L 131/77 H [Right Brachial artery] O2 Saturation 93 92 If not protocol 3 2 3 : Oxygen Flow, liters/minute 12/01/23 12/01/23 00:32 07:46 Temperature 37.1 C 36.8 C Heart Rate [ 69 72 Brachial] Respiratory 20 16 Rate Blood Pressure 133/64 H 129/63 [Right Brachial artery] O2 Saturation 92 94 If not protocol 3 3 : Oxygen Flow, liters/minute Oxygen O2 Source Nasal cannula Oxygen Flow Rate 2 I&O (Last 24 Hrs): Intake and Output Totals x24h 11/29/23 11/30/23 12/01/23 23:59 23:59 23:59 Intake Total 400 720 Output Total 4775 1979 1974 Balance -4375 -1260 -1974 General: Alert, Oriented x3 HEENT: EOMI, Mucous membr. moist/pink Neck: Supple Neuro: Alert, Non Focal Cardiovascular: Regular rate Respiratory: No respiratory distress (on suppl O2), Rhonchi (L base) Abdomen: Other (Obese with pannus) Genitourinary: Other (Redness at meatus, Cook in place) Extremities: Other (3+ edema to mid-thighs, less tense edema overall) - Results Results: Laboratory Results WBC 4.3 x10^3/uL (4.8-10.8) L 12/01/23 05:35 RBC 3.42 10^6/uL (4.70-6.10) L 12/01/23 05:35 Hgb 10.7 g/dL (14.0-18.0) L 12/01/23 05:35 Hct 34.2 % (42.0-52.0) L 12/01/23 05:35 MCV 100.0 fL (80.0-94.0) H 12/01/23 05:35 MCH 31.3 pg (27.0-31.0) H 12/01/23 05:35 MCHC 31.3 g/dL (32.0-36.0) L 12/01/23 05:35 RDW 15.8 % (12.0-15.0) H 12/01/23 05:35 Plt Count 70 10^3/uL (130-450) L 12/01/23 05:35 MPV 9.5 fL (7.4-11.4) 12/01/23 05:35 Neut # (Auto) 3.9 10^3/uL (1.5-6.6) 11/25/23 10:46 Lymph # (Auto) 1.0 10^3/uL (1.5-3.5) L 11/25/23 10:46 [place] # (Auto) 0.9 10^3/uL (0.0-1.0) 11/25/23 10:46 Eos # (Auto) 0.1 10^3/uL (0.0-0.7) 11/25/23 10:46 Baso # (Auto) 0.0 10^3/uL (0.0-0.1) 11/25/23 10:46 Absolute Nucleated RBC 0.00 x10^3/uL 11/25/23 10:46 Nucleated RBC % 0.0 /100WBC 11/25/23 10:46 Sodium 137 mmol/L (135-145) 12/01/23 05:35 Potassium 4.4 mmol/L (3.5-4.5) 12/01/23 05:35 Chloride 102 mmol/L (101-111) 12/01/23 05:35 Carbon Dioxide 32 mmol/L (21-32) 12/01/23 05:35 Anion Gap 3.0 (6-13) L 12/01/23 05:35 BUN 20 mg/dL (6-20) 12/01/23 05:35 Creatinine 0.6 mg/dL (0.6-1.3) 12/01/23 05:35 Estimated GFR (MDRD) 137 (>89) 12/01/23 05:35 Glucose 82 mg/dL (74-104) 12/01/23 05:35 Calcium 8.6 mg/dL (8.5-10.3) 12/01/23 05:35 Phosphorus 2.9 mg/dL (2.5-5.0) 12/01/23 05:35 Magnesium 1.8 mg/dL (1.7-2.3) 12/01/23 05:35 Iron 94 ug/dL (50-212) 12/01/23 05:35 TIBC 213 ug/dL (250-450) L 12/01/23 05:35 % Saturation 44 % (20-50) 12/01/23 05:35 Transferrin 152 mg/dL (203-362) L 12/01/23 05:35 Total Bilirubin 4.1 mg/dL (0.2-1.0) H 11/27/23 05:47 AST 21 IU/L (10-42) 11/27/23 05:47 ALT 15 IU/L (10-60) 11/27/23 05:47 Alkaline Phosphatase 101 IU/L (42-121) 11/27/23 05:47 Troponin I High Sens 5.1 ng/L (2.3-19.7) 11/25/23 10:46 B-Natriuretic Peptide 249 pg/mL (5-100) H 11/29/23 05:20 Total Protein 5.7 g/dL (6.4-8.9) L 11/27/23 05:47 Albumin 3.3 g/dL (3.2-5.5) 11/29/23 05:20 Globulin 2.5 g/dL (2.1-4.2) 11/27/23 05:47 Albumin/Globulin Ratio 1.3 (1.0-2.2) 11/27/23 05:47 Lipase 347 U/L (11-82) H 11/25/23 10:46 Vitamin B12 777 pg/mL (180-914) 11/29/23 05:20 Folate 5.6 ng/mL (5.90 - >24.8) L 11/29/23 05:20 Fluid Source PLEURAL 11/30/23 12:30 Fluid Color STRAW 11/30/23 12:30 Fluid Clarity TURBID 11/30/23 12:30 Fluid WBC 716 /mm^3 11/30/23 12:30 Fluid RBC 53019 /mm^3 11/30/23 12:30 Fluid Neutrophils % 1.0 % 11/30/23 12:30 Fluid Lymphocytes % 41.0 % 11/30/23 12:30 Fluid Monocytes % 6.0 % 11/30/23 12:30 Fluid Macrophages % 49.0 % 11/30/23 12:30 Fld Mesothelial Cell % 3.0 % 11/30/23 12:30
[2023-12-01] MEDS: LIDOCAINE JELLY 2% 6 ML JEL.PF.APP TOP SCH (15:01)
[2023-12-01] MEDS: SODIUM CHLORIDE 0.65% NASAL SPRAY NAS PRN (16:48)
[2023-12-01] MEDS: NEOMYCIN/BACITRA/POLYMYX OINT PACKET TOP SCH (21:11)
[2023-12-02 05:20] LABS: HCT - HEMATOCRIT 33.5 % (42.0-52.0); HGB - HEMOGLOBIN 10.8 g/dL (14.0-18.0); MEAN CORPUSCULAR HEMOGLOBIN 32.2 pg (27.0-31.0); MEAN CORPUSCULAR HGB CONC 32.2 g/dL (32.0-36.0); MEAN PLATELET VOLUME 8.8 fL (7.4-11.4); RED BLOOD COUNT 3.35 10^6/uL (4.70-6.10); RED CELL DISTRIBUTION WIDTH 15.9 % (12.0-15.0); WHITE BLOOD COUNT 5.4 x10^3/uL (4.8-10.8)
[2023-12-02 05:34] LABS: CALCIUM 8.6 mg/dL (8.5-10.3); CREATININE 0.7 mg/dL (0.6-1.3); MAGNESIUM 1.8 mg/dL (1.7-2.3); POTASSIUM 4.5 mmol/L (3.5-4.5)
[2023-12-02 08:07] LABS: PROTEIN BODY FLUID 1.7 g/dL (.)
--- NOTE | 2023-12-02 18:49 | PROVIDER PROGRESS NOTE ---
Assessment/Plan - Problem List (1) Acute hypoxemic respiratory failure Assessment/Plan: Etiology of hypoxemic respiratory failure is unknown and differential diagnosis would include cardiac dysfunction, liver disease and pulmonary hypertension. His Echo showed normal LV systolic function and no pulmonary hypertension. Rechecked CXR on 11/29/23 and it showed moder R pleural effusion We have been able to wean down the supplemental O2 from 5 L down to room air overnight, since he has been diuresing a lot. However today his O2 needs went up to 3L (VS were all reviewed) Plan: Cont Lasix iv, watching I's and O's Continue to try to wean down his supplemental O2 (2) Pleural effusion Assessment/Plan: Thoracentesis under ultrasound guidance was done 11/30/23>> 2L removed by IR . That did not help decrease huis need for suppl O2. Testing of his pleural fluid showed it was straw colored, turbid, some WBCs, no growth so far, but no protein or glu or LDH resulted yet Plan: Cont diuresis Await fluid results (3) Anasarca Assessment/Plan: Etiology of anasarca was not clear. We were working him up for heart failure, liver failure or a multifactorial process. The Echo was done and shows that he has a normal LV systolic function. I got details about his alcohol use. He drinks a box of wine a night. In addition he drinks 2 L of water per day and 1 tray of ice that melts down per day. Here he was getting Lasix IV every 8 hours and albumin IV every 8 hours. His fluid balance is about -8 L since admission. Legs are smaller, scrotum is smaller. I educated him about excessive alcohol intake and excessive fluid intake. He understands and he is very compliant with the strict fluid restriction while he is here, which is 1800 cc per day. As of today, he is 14 L (-) in fluid balance since admission (I's and O's reviewed) and his wt is down 7 kg since admission. Plan: Cont Lasix IV, the BID dose now changed to once daily, watching I's and O's to asssure still good diuresis Cont higher spironolactone dose of [address] of abdomen/pelvis was planned. He could not fit on CT table. (4) Scrotal edema Assessment/Plan: His scrotum and penis was visualized with RN together today. The scrotum is the size of a cantelope, it's edema is entirely surrounding the penis, no penile s haft is seen. Plan: Will order lifting the scrotum on a sheet Cont diuresis The Cook is not yet ready for removal (5) Urethral meatus pain Assessment/Plan: The very tip of urethral opening is red and is tender when Cook is moved. Penis is still surroundede entirely by his edematous scrotum (visualized with RN together today) Plan: Cont topical Neomycin/Bacitracin BID and Lido jelly 2& QID applied to meatus (6) Alcohol abuse I asked more in depth questions and got details about his alcohol use. He drinks a box of wine a night. Plan: He has been here over 72 hours therefore I will not start a [facility] protocol re: alcohol withdrawal now Cont daily thiamine orally and MOV daily I will request social work consult regarding alcohol abuse (7) Morbid Obesity BMI 40-44.9 This is partly from his anasarca. His weight complicates his care; CT scan cannot be done as he does not fit on CT table - Current Meds Current Meds: Current Medications Generic Name Dose Route Start Last Admin Trade Name Freq PRN Reason Stop Dose Admin Acetaminophen 650 mg 11/29/23 22:09 12/02/23 07:31 Acetaminophen 325 Mg Tablet PO 650 mg Q4HR PRN Administration Pain or Fever > 38C (100.4F) Carvedilol 3.125 mg 11/28/23 21:00 12/02/23 08:18 Carvedilol 3.125 Mg Tablet PO 3.125 mg BID ILA Administration Furosemide 40 mg 11/30/23 09:00 12/02/23 08:18 Furosemide 40 Mg/4 Ml Vial IVP 40 mg DAILY ILA Administration Heparin Sodium (Porcine) 5,000 unit 11/25/23 21:00 12/02/23 08:19 Heparin 5,000 Unit/Ml Vial SUBQ Not Given BID ILA Lidocaine HCl 2 ml 12/01/23 15:00 12/02/23 17:54 Lidocaine Jelly 2% 6 Ml Jel.Pf.[place] TOP Not Given QID ILA Magnesium Oxide 400 mg 11/30/23 17:00 12/02/23 08:18 Magnesium Oxide 400 Mg Tablet PO 400 mg DAILYWM ILA Administration Neomycin/Polymyxin/Bacitracin 1 packet 02/10/24 21:00 12/02/23 08:18 Neomycin/Bacitra/Polymyx Oint Packet TOP 1 packet BID ILA Administration Polyethylene Glycol 17 gm 11/28/23 09:00 12/02/23 08:17 Polyethylene Glycol 3350 17 Gm Packet PO 17 gm DAILY ILA Administration Potassium Chloride 40 meq 11/25/23 16:17 12/02/23 08:17 Potassium Chloride 20 Meq/15 Ml Udc PO 40 meq DAILYWM ILA Administration Multivit/Folic Acid/Iron 1 tab 11/29/23 08:00 12/02/23 08:18 Vitamin Tablet PO 1 tab DAILYWM ILA Administration Sodium Chloride 10 ml 11/25/23 17:00 12/02/23 15:44 Sodium Chloride Flush 0.9% 10 Ml Syringe IVP 10 ml 0100,0900,1700 ILA Administration Sodium Chloride 2 sprays 11/30/23 17:27 12/02/23 00:22 Sodium Chloride 0.65% Nasal [place] SUBHASH 2 sprays Q4HR PRN Administration Nasal Congestion Spironolactone 50 mg 11/29/23 09:00 12/02/23 08:17 Spironolactone 25 Mg Tablet PO 50 mg DAILY ILA Administration Thiamine HCl 100 mg 11/29/23 09:00 12/02/23 08:18 Thiamine 100 Mg Tablet PO 100 mg DAILY ILA Administration - Lab Result Fish Bone Diagrams: 12/02/23 05:07 12/02/23 05:07 - Additional Planning My Orders: My Active Orders 12/01/23 21:00 Neomyci/Bacitra/Poly Oint Pkt [Neosporin Oint Pkt] 1 packet TOP BID 12/03/23 05:00 BMP - BASIC METABOLIC PANEL [CHEM] DAILYLAB Subjective - Subjective Patient Reports: Other (pain at penile tip, still swollen scrotum) Objective Vital Signs: Vital Signs - 24 hr 12/01/23 12/01/23 12/02/23 19:40 21:11 09:55 Temperature 36.9 C Heart Rate [ 67 Brachial] Respiratory 18 Rate Blood Pressure 117/60 [Right Brachial artery] O2 Saturation 93 If not protocol 3 3 2 : Oxygen Flow, liters/minute 12/02/23 12/02/23 13:19 15:41 Temperature 36.7 C 36.5 C Heart Rate [ 65 63 Brachial] Respiratory 16 18 Rate Blood Pressure 118/68 121/61 [Right Brachial artery] O2 Saturation 93 94 If not protocol 3 3 : Oxygen Flow, liters/minute Oxygen O2 Source Nasal cannula Oxygen Flow Rate 2 I&O (Last 24 Hrs): Intake and Output Totals x24h 11/30/23 12/01/23 12/02/23 23:59 23:59 23:59 Intake Total 720 400 Output Total 1979 5835 1139 Balance -1260 -4552 -6543 General: Alert, Oriented x3 HEENT: Mucous membr. moist/pink, Other (wearing O2 nasal cannuls) Neck: Supple, No JVD Neuro: Alert, Non Focal Cardiovascular: No murmurs Respiratory: No respiratory distress, Breath sounds nml Abdomen: Soft, Other (Obese with pannus) Genitourinary: Other (Very enlarged scrotum (size of a cantaloupe) with penis completely surrounded by the scrotum, no shaft visible, Cook exits the meatus which has redness) Extremities: Other (3+ edema to the mid thigh) - Results Results: Laboratory Results WBC 5.4 x10^3/uL (4.8-10.8) 12/02/23 05:07 RBC 3.35 10^6/uL (4.70-6.10) L 12/02/23 05:07 Hgb 10.8 g/dL (14.0-18.0) L 12/02/23 05:07 Hct 33.5 % (42.0-52.0) L 12/02/23 05:07 MCV 100.0 fL (80.0-94.0) H 12/02/23 05:07 MCH 32.2 pg (27.0-31.0) H 12/02/23 05:07 MCHC 32.2 g/dL (32.0-36.0) 12/02/23 05:07 RDW 15.9 % (12.0-15.0) H 12/02/23 05:07 Plt Count 70 10^3/uL (130-450) L 12/02/23 05:07 MPV 8.8 fL (7.4-11.4) 12/02/23 05:07 Neut # (Auto) 3.9 10^3/uL (1.5-6.6) 11/25/23 10:46 Lymph # (Auto) 1.0 10^3/uL (1.5-3.5) L 11/25/23 10:46 [place] # (Auto) 0.9 10^3/uL (0.0-1.0) 11/25/23 10:46 Eos # (Auto) 0.1 10^3/uL (0.0-0.7) 11/25/23 10:46 Baso # (Auto) 0.0 10^3/uL (0.0-0.1) 11/25/23 10:46 Absolute Nucleated RBC 0.00 x10^3/uL 11/25/23 10:46 Nucleated RBC % 0.0 /100WBC 11/25/23 10:46 Sodium 136 mmol/L (135-145) 12/02/23 05:07 Potassium 4.5 mmol/L (3.5-4.5) 12/02/23 05:07 Chloride 101 mmol/L (101-111) 12/02/23 05:07 Carbon Dioxide 33 mmol/L (21-32) H 12/02/23 05:07 Anion Gap 2.0 (6-13) L 12/02/23 05:07 BUN 21 mg/dL (6-20) H 12/02/23 05:07 Creatinine 0.7 mg/dL (0.6-1.3) 12/02/23 05:07 Estimated GFR (MDRD) 114 (>89) 12/02/23 05:07 Glucose 84 mg/dL (74-104) 12/02/23 05:07 Calcium 8.6 mg/dL (8.5-10.3) 12/02/23 05:07 Phosphorus 2.9 mg/dL (2.5-5.0) 12/01/23 05:35 Magnesium 1.8 mg/dL (1.7-2.3) 12/02/23 05:07 Iron 94 ug/dL (50-212) 12/01/23 05:35 TIBC 213 ug/dL (250-450) L 12/01/23 05:35 % Saturation 44 % (20-50) 12/01/23 05:35 Transferrin 152 mg/dL (203-362) L 12/01/23 05:35 Total Bilirubin 4.1 mg/dL (0.2-1.0) H 11/27/23 05:47 AST 21 IU/L (10-42) 11/27/23 05:47 ALT 15 IU/L (10-60) 11/27/23 05:47 Alkaline Phosphatase 101 IU/L (42-121) 11/27/23 05:47 Troponin I High Sens 5.1 ng/L (2.3-19.7) 11/25/23 10:46 B-Natriuretic Peptide 249 pg/mL (5-100) H 11/29/23 05:20 Total Protein 5.7 g/dL (6.4-8.9) L 11/27/23 05:47 Albumin 3.3 g/dL (3.2-5.5) 11/29/23 05:20 Globulin 2.5 g/dL (2.1-4.2) 11/27/23 05:47 Albumin/Globulin Ratio 1.3 (1.0-2.2) 11/27/23 05:47 Lipase 347 U/L (11-82) H 11/25/23 10:46 Vitamin B12 777 pg/mL (180-914) 11/29/23 05:20 Folate 5.6 ng/mL (5.90 - >24.8) L 11/29/23 05:20 Fluid Source PLEURAL 11/30/23 12:30 Fluid Color STRAW 11/30/23 12:30 Fluid Clarity TURBID 11/30/23 12:30 Fluid WBC 716 /mm^3 11/30/23 12:30 Fluid RBC 90300 /mm^3 11/30/23 12:30 Fluid Neutrophils % 1.0 % 11/30/23 12:30 Fluid Lymphocytes % 41.0 % 11/30/23 12:30 Fluid Monocytes % 6.0 % 11/30/23 12:30 Fluid Macrophages % 49.0 % 11/30/23 12:30 Fld Mesothelial Cell % 3.0 % 11/30/23 12:30 Fluid Glucose 101 mg/dL (.) 11/30/23 12:30 Fluid Total Protein 1.7 g/dL (.) 11/30/23 12:30 Fluid LDH 315 IU/L (.) 11/30/23 12:30
[2023-12-03 05:56] LABS: CALCIUM 8.7 mg/dL (8.5-10.3); CREATININE 0.6 mg/dL (0.6-1.3); MAGNESIUM 1.8 mg/dL (1.7-2.3); POTASSIUM 4.5 mmol/L (3.5-4.5)
--- NOTE | 2023-12-03 11:27 | PROVIDER PROGRESS NOTE ---
Assessment/Plan - Problem List (1) Acute hypoxemic respiratory failure Assessment/Plan: Etiology of hypoxemic respiratory failure is unknown and differential diagnosis would include cardiac dysfunction, liver disease and pulmonary hypertension. His Echo showed normal LV systolic function and no pulmonary hypertension. Rechecked CXR on 11/29/23 and it showed moder R pleural effusion We have been able to wean down the supplemental O2 from 5 L down to room air, then his O2 needs went up to 3L several days ago. That was when the thoracentesis was ordered. Plan: Cont Lasix iv, watching I's and O's Continue to try to wean down his supplemental O2 He has no qualifying diagnosis to go home with O2, therefore needs aggressive management with his volume status, in order to taper O2 down to room air I will order IS (2) Pleural effusion Assessment/Plan: Thoracentesis under ultrasound guidance was done 11/30/23>> 2L removed by IR . That did not help decrease his need for suppl O2. Testing of his pleural fluid showed it was straw colored, turbid, some WBCs, no growth so far, but no protein or glu or LDH resulted yet. The final culture report showed no growth Plan: Cont diuresis (3) Anasarca Assessment/Plan: Etiology of anasarca was not clear. We were working him up for heart failure, liver failure or a multifactorial process. The Echo was done and shows that he has a normal LV systolic function. I got details about his alcohol use. He drinks a box of wine a night. In addition he drinks 2 L of water per day and 1 tray of ice that melts down per day. Here he was getting Lasix IV every 8 hours and albumin IV every 8 hours. His fluid balance is about -8 L since admission. Legs are smaller, scrotum is smaller. I educated him about excessive alcohol intake and excessive fluid intake. He und erstands and he is very compliant with the strict fluid restriction while he is here, which is 1800 cc per day. As of today, he is ~15 L (-) in fluid balance since admission (I's and O's reviewed) and his wt is down ~8 kg since admission. Plan: Cont Lasix IV, the BID dose now changed to once daily, watching I's and O's to assure still good diuresis. Cont higher Spironolactone dose of [address] of abdomen/pelvis was planned. He could not fit on CT table. (4) Scrotal edema Assessment/Plan: His scrotum and penis was visualized with RN together 12/02/23. The scrotum is the size of a large orange, and the scrotal edema is entirely surrounding the penis, no penile shaft is seen. Plan: Will order lifting the scrotum on a sheet to make a sling Cont diuresis The Cook is not yet ready for removal (5) Urethral meatus pain Assessment/Plan: The very tip of urethral opening is red and is tender when Cook is moved. Penis is still surroundede entirely by his edematous scrotum (visualized with RN together today) Plan: Cont topical Neomycin/Bacitracin BID and Lido jelly 2& QID applied to meatus (6) Alcohol abuse I got details about his alcohol use. He drinks a box of wine a night. He was not on a CIWA protocol since those details were not available until many days into this hospitalization, and there had been no withdrawal symptoms Plan: Cont daily thiamine orally and MOV daily I will request social work consult regarding alcohol abuse (7) Morbid Obesity BMI 40-44.9 This is partly from his anasarca. His weight complicates his care. CT scan could not be done since he does not fit on CT table - Current Meds Current Meds: Current Medications Generic Name Dose Route Start Last Admin Trade Name Freq PRN Reason Stop Dose Admin Acetaminophen 650 mg 11/29/23 22:09 12/02/23 07:31 Acetaminophen 325 Mg Tablet PO 650 mg Q4HR PRN Administration Pain or Fever > 38C (100.4F) Carvedilol 3.125 mg 11/28/23 21:00 12/03/23 09:00 Carvedilol 3.125 Mg Tablet PO 3.125 mg BID ILA Administration Furosemide 40 mg 11/30/23 09:00 12/03/23 09:00 Furosemide 40 Mg/4 Ml Vial IVP 40 mg DAILY ILA Administration Heparin Sodium (Porcine) 5,000 unit 11/25/23 21:00 12/03/23 09:00 Heparin 5,000 Unit/Ml Vial SUBQ Not Given BID ILA Lidocaine HCl 2 ml 12/01/23 15:00 12/03/23 09:00 Lidocaine Jelly 2% 6 Ml Jel.Pf.Chucky TOP 2 ml QID ILA Administration Magnesium Oxide 400 mg 11/30/23 17:00 12/03/23 09:00 Magnesium Oxide 400 Mg Tablet PO 400 mg DAILYWM ILA Administration Neomycin/Polymyxin/Bacitracin 1 packet 12/01/23 21:00 12/03/23 09:00 Neomycin/Bacitra/Polymyx Oint Packet TOP 1 packet BID ILA Administration Polyethylene Glycol 17 gm 11/28/23 09:00 12/03/23 10:34 Polyethylene Glycol 3350 17 Gm Packet PO 17 gm DAILY ILA Administration Potassium Chloride 40 meq 11/25/23 16:17 12/03/23 09:00 Potassium Chloride 20 Meq/15 Ml Udc PO 40 meq DAILYWM ILA Administration Multivit/Folic Acid/Iron 1 tab 11/29/23 08:00 12/03/23 09:00 Vitamin Tablet PO 1 tab DAILYWM ILA Administration Sodium Chloride 10 ml 11/25/23 17:00 12/03/23 10:31 Sodium Chloride Flush 0.9% 10 Ml Syringe IVP 10 ml 0100,0900,1700 ILA Administration Sodium Chloride 2 sprays 11/30/23 17:27 12/02/23 00:22 Sodium Chloride 0.65% Nasal [place] SUBHASH 2 sprays Q4HR PRN Administration Nasal Congestion Spironolactone 50 mg 11/29/23 09:00 12/03/23 09:00 Spironolactone 25 Mg Tablet PO 50 mg DAILY ILA Administration Thiamine HCl 100 mg 11/29/23 09:00 12/03/23 09:00 Thiamine 100 Mg Tablet PO 100 mg DAILY ILA Administration - Lab Result Fish Bone Diagrams: 12/03/23 05:05 12/03/23 05:05 - Additional Planning My Orders: My Active Orders 12/03/23 08:21 Miscellaenous Nursing Order [RC] QSHIFT 12/04/23 05:00 HGB - HEMOGLOBIN [HEME] DAILYLAB MAGNESIUM [CHEM] DAILYLAB Subjective - Subjective Patient Reports: Pain (of penis and parts of scrotum) Objective Vital Signs: Vital Signs - 24 hr 12/02/23 12/02/23 12/02/23 13:19 15:41 19:20 Temperature 36.7 C 36.5 C Heart Rate [ 65 63 Brachial] Respiratory 16 18 Rate Blood Pressure 118/68 121/61 [Right Brachial artery] O2 Saturation 93 94 If not protocol 3 3 3 : Oxygen Flow, liters/minute 12/02/23 12/03/23 20:19 07:15 Temperature 37.0 C 37 C Heart Rate [ 62 71 Brachial] Respiratory 20 20 Rate Blood Pressure 146/74 H 141/71 H [Right Brachial artery] O2 Saturation 95 93 If not protocol 3 3 : Oxygen Flow, liters/minute Oxygen O2 Source Nasal cannula Oxygen Flow Rate 2 I&O (Last 24 Hrs): Intake and Output Totals x24h 12/01/23 12/02/23 12/03/23 23:59 23:59 23:59 Intake Total 400 400 Output Total 2276 4818 Balance -1875 -1880 General: Alert, Oriented x3 HEENT: EOMI, Mucous membr. moist/pink Neck: Supple Neuro: Alert, Non Focal Cardiovascular: Regular rate (Distant heart sounds due to morbid obesity) Respiratory: No respiratory distress (on suppl O2) Genitourinary: Other (swollen scrotum , penile opening is surrounded by swollen penis, no shaft seen) Extremities: Other (3+ edema to mid-thigh) - Results Results: Laboratory Results WBC 5.4 x10^3/uL (4.8-10.8) 12/02/23 05:07 RBC 3.35 10^6/uL (4.70-6.10) L 12/02/23 05:07 Hgb 10.9 g/dL (14.0-18.0) L 12/03/23 05:05 Hct 33.5 % (42.0-52.0) L 12/02/23 05:07 MCV 100.0 fL (80.0-94.0) H 12/02/23 05:07 MCH 32.2 pg (27.0-31.0) H 12/02/23 05:07 MCHC 32.2 g/dL (32.0-36.0) 12/02/23 05:07 RDW 15.9 % (12.0-15.0) H 12/02/23 05:07 Plt Count 70 10^3/uL (130-450) L 12/02/23 05:07 MPV 8.8 fL (7.4-11.4) 12/02/23 05:07 Neut # (Auto) 3.9 10^3/uL (1.5-6.6) 11/25/23 10:46 Lymph # (Auto) 1.0 10^3/uL (1.5-3.5) L 11/25/23 10:46 Harris # (Auto) 0.9 10^3/uL (0.0-1.0) 11/25/23 10:46 Eos # (Auto) 0.1 10^3/uL (0.0-0.7) 11/25/23 10:46 Baso # (Auto) 0.0 10^3/uL (0.0-0.1) 11/25/23 10:46 Absolute Nucleated RBC 0.00 x10^3/uL 11/25/23 10:46 Nucleated RBC % 0.0 /100WBC 11/25/23 10:46 Sodium 135 mmol/L (135-145) 12/03/23 05:05 Potassium 4.5 mmol/L (3.5-4.5) 12/03/23 05:05 Chloride 102 mmol/L (101-111) 12/03/23 05:05 Carbon Dioxide 30 mmol/L (21-32) 12/03/23 05:05 Anion Gap 3.0 (6-13) L 12/03/23 05:05 BUN 20 mg/dL (6-20) 12/03/23 05:05 Creatinine 0.6 mg/dL (0.6-1.3) 12/03/23 05:05 Estimated GFR (MDRD) 137 (>89) 12/03/23 05:05 Glucose 79 mg/dL (74-104) 12/03/23 05:05 Calcium 8.7 mg/dL (8.5-10.3) 12/03/23 05:05 Phosphorus 2.9 mg/dL (2.5-5.0) 12/01/23 05:35 Magnesium 1.8 mg/dL (1.7-2.3) 12/03/23 05:05 Iron 94 ug/dL (50-212) 12/01/23 05:35 TIBC 213 ug/dL (250-450) L 12/01/23 05:35 % Saturation 44 % (20-50) 12/01/23 05:35 Transferrin 152 mg/dL (203-362) L 12/01/23 05:35 Total Bilirubin 4.1 mg/dL (0.2-1.0) H 11/27/23 05:47 AST 21 IU/L (10-42) 11/27/23 05:47 ALT 15 IU/L (10-60) 11/27/23 05:47 Alkaline Phosphatase 101 IU/L (42-121) 11/27/23 05:47 Troponin I High Sens 5.1 ng/L (2.3-19.7) 11/25/23 10:46 B-Natriuretic Peptide 249 pg/mL (5-100) H 11/29/23 05:20 Total Protein 5.7 g/dL (6.4-8.9) L 11/27/23 05:47 Albumin 3.3 g/dL (3.2-5.5) 11/29/23 05:20 Globulin 2.5 g/dL (2.1-4.2) 11/27/23 05:47 Albumin/Globulin Ratio 1.3 (1.0-2.2) 11/27/23 05:47 Lipase 347 U/L (11-82) H 11/25/23 10:46 Vitamin B12 777 pg/mL (180-914) 11/29/23 05:20 Folate 5.6 ng/mL (5.90 - >24.8) L 11/29/23 05:20 Fluid Source PLEURAL 11/30/23 12:30 Fluid Color STRAW 11/30/23 12:30 Fluid Clarity TURBID 11/30/23 12:30 Fluid WBC 716 /mm^3 11/30/23 12:30 Fluid RBC 58399 /mm^3 11/30/23 12:30 Fluid Neutrophils % 1.0 % 11/30/23 12:30 Fluid Lymphocytes % 41.0 % 11/30/23 12:30 Fluid Monocytes % 6.0 % 11/30/23 12:30 Fluid Macrophages % 49.0 % 11/30/23 12:30 Fld Mesothelial Cell % 3.0 % 11/30/23 12:30 Fluid Glucose 101 mg/dL (.) 11/30/23 12:30 Fluid Total Protein 1.7 g/dL (.) 11/30/23 12:30 Fluid LDH 315 IU/L (.) 11/30/23 12:30
[2023-12-04 05:58] LABS: CALCIUM 8.6 mg/dL (8.5-10.3); CREATININE 0.7 mg/dL (0.6-1.3); MAGNESIUM 1.8 mg/dL (1.7-2.3); POTASSIUM 4.6 mmol/L (3.5-4.5)
--- NOTE | 2023-12-04 19:03 | PROVIDER PROGRESS NOTE ---
Subjective - Prog Note Date Prog Note Date: 12/04/23 Prog Note Time: 19:03 - Subjective Subjective: His main complaint is that of scrotal edema. His penis retracts because of that. Nevertheless, he really wants the Cook out. So I had it discontinued. He is sitting upright in a chair. He is so worried because he has not peed in 2 hours. He is worried that the Cook will have to go back in. Current Medications - Current Medications Current Medications: Active Medications Acetaminophen (Acetaminophen 325 Mg Tablet) 650 mg PO Q4HR PRN PRN Reason: Pain or Fever > 38C (100.4F) Last Admin: 12/03/23 13:47 Dose: 650 mg Carvedilol (Carvedilol 3.125 Mg Tablet) 3.125 mg PO BID [facility] Last Admin: 12/04/23 10:21 Dose: 3.125 mg Furosemide (Furosemide 40 Mg/4 Ml Vial) 40 mg IVP DAILY [facility] Last Admin: 12/04/23 10:41 Dose: 40 mg Heparin Sodium (Porcine) (Heparin 5,000 Unit/Ml Vial) 5,000 unit SUBQ BID [facility] Last Admin: 12/04/23 09:54 Dose: Not Given Lidocaine HCl (Lidocaine Jelly 2% 6 Ml Jel.Pf.Chucky) 2 ml TOP QID [facility] Last Admin: 12/04/23 14:58 Dose: 2 ml Magnesium Oxide (Magnesium Oxide 400 Mg Tablet) 400 mg PO DAILYWM [facility] Last Admin: 12/04/23 10:20 Dose: 400 mg Neomycin/Polymyxin/Bacitracin (Neomycin/Bacitra/Polymyx Oint Packet) 1 packet TOP BID [facility] Last Admin: 12/04/23 10:23 Dose: 1 packet Polyethylene Glycol (Polyethylene Glycol 3350 17 Gm Packet) 17 gm PO DAILY [facility] Last Admin: 12/03/23 10:34 Dose: 17 gm Potassium Chloride (Potassium Chloride 20 Meq/15 Ml Udc) 40 meq PO DAILYWM [facility] Last Admin: 12/04/23 10:21 Dose: Not Given Multivit/Folic Acid/Iron ( Vitamin Tablet) 1 tab PO DAILYWM [facility] Last Admin: 12/04/23 10:20 Dose: 1 tab Sodium Chloride (Sodium Chloride Flush 0.9% 10 Ml Syringe) 10 ml IVP PRN PRN PRN Reason: NEEDED PER PROVIDER ORDERS Sodium Chloride (Sodium Chloride Flush 0.9% 10 Ml Syringe) 10 ml IVP 0100,0900,1700 [facility] Last Admin: 12/04/23 17:25 Dose: 10 ml Sodium Chloride (Sodium Chloride 0.65% Nasal [place]) 2 sprays SUBHASH Q4HR PRN PRN Reason: Nasal Congestion Last Admin: 12/02/23 00:22 Dose: 2 sprays Spironolactone (Spironolactone 25 Mg Tablet) 50 mg PO DAILY [facility] Last Admin: 12/04/23 10:21 Dose: 50 mg Thiamine HCl (Thiamine 100 Mg Tablet) 100 mg PO DAILY [facility] Last Admin: 12/04/23 10:21 Dose: 100 mg carvediloL [Coreg] 3.125 mg PO BID 11/23/23 Objective - Vital Signs/Intake & Output Reviewed Vital Signs: Yes Intake & Output: Intake & Output 12/01/23 12/02/23 12/03/23 12/04/23 23:59 23:59 23:59 23:59 Intake Total 400 400 450 Output Total 2275 9070 0739 2500 Balance -1875 -2350 -1510 -2500 - Objective General Appearance: positive: No acute distress, Other (He holds himself very still. Exceedingly pale male. Looks older than stated age. Sitting up in chair.) Eyes Bilateral: positive: PERRL, EOMI ENT: positive: No signs of dehydration Neck: positive: No JVD. negative: Stiff neck Respiratory: positive: No respiratory distress, Other (Diminished breath sounds at the bases. Unlabored shallow respiration). negative: Wheezes, Rales, Rhonchi Cardiovascular: positive: Regular rate & rhythm Abdomen: positive: Non-tender, Nml bowel sounds, No distention, Other (scrotal edema) Skin: positive: Warm, Dry, Other (Skin of his shins and calves has woody edema changes. But you can see where his skin is shrinking from loss of edema. Slight pinkness but no redness or heat or skin breakdown) Extremities: positive: Full ROM, Pedal edema (First time I am seeing you. Edema is resolving and patient says that the shrinking and wrinkling is from the loss of water) Neurologic/Psychiatric: positive: Oriented x3, CN's nml (2-12), Motor nml, Other (Appears very fatigued, and it looks like it is an effort to hold his head up, and voice is slightly low in tone) - Lab Results Fish Bones: 12/04/23 04:43 12/04/23 04:43 Other Labs: Lab Results x24hrs 12/04/23 12/04/23 Range/Units 04:43 04:43 Hgb 10.9 L (14.0-18.0) g/dL Sodium 136 (135-145) mmol/L Potassium 4.6 H (3.5-4.5) mmol/L Chloride 102 (101-111) mmol/L Carbon Dioxide 31 (21-32) mmol/L Anion Gap 3.0 L (6-13) BUN 20 (6-20) mg/dL Creatinine 0.7 (0.6-1.3) mg/dL Estimated GFR (MDRD) 114 (>89) Glucose 79 (74-104) mg/dL Calcium 8.6 (8.5-10.3) mg/dL Magnesium 1.8 (1.7-2.3) mg/dL Assessment/Plan - Problem List (1) Acute hypoxemic respiratory failure Impression: No cause found yet. differential diagnosis would include cardiac dysfunction, liver disease and pulmonary hypertension. His Echo showed normal LV systolic function and no pulmonary hypertension. Rechecked CXR on 11/29/23 and it showed moder R pleural effusion. He has had a thoracentesis on 11/30 and fluid removed was 1900 cc of lizett-colored fluid November 25 he was on 2 L. By November 30 he was on 3 L. By this evening he is down to 2 L. Plan: Cont Lasix iv, watching I's and O's Continue to try to wean down his supplemental O2 He has no qualifying diagnosis to go home with O2, therefore needs aggressive management with his volume status, in order to taper O2 down to room air (2) Pleural effusion Assessment/Plan: Thoracentesis under ultrasound guidance was done 11/30/23>> 2L removed by IR . That did not help decrease his need for suppl O2. Testing of his pleural fluid showed it was straw colored, turbid, some WBCs, no growth so far, but no protein or glu or LDH resulted yet. The final culture report showed no growth. Not submitted for cytology. Plan: Cont diuresis (3) Anasarca Assessment/Plan: Etiology of anasarca was not clear. We were working him up for heart failure, liver failure or a multifactorial process. The Echo was done and shows that he has a normal LV systolic function. I got details about his alcohol use. He drinks a box of wine a night. In addition he drinks 2 L of water per day and 1 tray of ice that melts down per day. Here he was getting Lasix IV every 8 hours and albumin IV every 8 hours. His fluid balance is about -8 L since admission. Legs are smaller, scrotum is smaller. Has been educated about excessive alcohol intake and excessive fluid intake. He understands and he is very compliant with the strict fluid restriction while he is here, which is 1800 cc per day. As of today, he is ~14 L (-) in fluid balance since admission (I's and O's reviewed). Weight was 156 kg on admission. 141.5 kg today. Plan: Cont Lasix IV once daily, watching I's and O's to assure still good diuresis. Cont higher Spironolactone dose of 50 mg daily. Potassium was rising. He was 4.5 the last 2 days, and 4.6 today. Self discontinued the potassium and continue the spironolactone. He will need a recheck of his BMP tomorrow. CT of abdomen/pelvis was planned. He could not fit on CT table. (4) Scrotal edema Assessment/Plan: His scrotum and penis was visualized with RN 12/02/23. The scrotum is the size of a large orange, and the scrotal edema is entirely surrounding the penis, no penile shaft is seen. Was discontinued today at his request. He is worried that he will not be able to pee before tomorrow. I have reassured him that I will reorder a Cook catheter if needed and use lidocaine jelly to help with the pain of reinsertion. (5) Urethral meatus pain Assessment/Plan: The very tip of urethral opening is red and is tender when Cook is moved. Penis is still surroundede entirely by his edematous scrotum (visualized with RN together today) Plan: Cont topical Neomycin/Bacitracin BID and Lido jelly 2& QID applied to meatus (6) Alcohol abuse He drinks a box of wine a night. He was not on a CIWA protocol since those details were not available until many days into this hospitalization, and there had been no withdrawal symptoms Plan: Cont daily thiamine orally and MOV daily Social work consult regarding alcohol abuse done (7) Morbid Obesity BMI 40-44.9 This is partly from his anasarca. His weight complicates his care. CT scan could not be done since he does not fit on CT table
[2023-12-05] MEDS ORDERED: iohexoL-300 100 ML VIAL ONE (16:01)
--- NOTE | 2023-12-05 16:56 | CT Report ---
PROCEDURE: Abdomen/Pelvis W INDICATIONS: Anasarca/pleural eff/res fail of unknown etiology CONTRAST: 100mL Omni 300 TECHNIQUE: After the administration of intravenous contrast, a CT scan of the abdomen and pelvis was performed. Images were recorded and evaluated at appropriate window settings. Reformats: coronal and sagittal. F or radiation dose reduction, the following was used: automated exposure control, adjustment of mA and /or kV according to patient size. COMPARISON: Chest CT to 124 FINDINGS: Image quality: Diagnostic Lower chest: Partially seen moderate right pleural effusion and basal atelectasis and possible airspa ce disease. Trace left effusion is also seen, with subjacent atelectasis. Cardiomegaly and coronary c alcifications. Trace pericardial effusion. Suspected bilateral gynecomastia. Liver: Irregular nodular contour. No suspicious focal lesion on this single phase imaging. Gallbladder and biliary system: Possible small stones versus pericholecystic varices. No pathologic b iliary dilation. Pancreas: No ductal dilation Spleen: Splenomegaly Adrenals: No discrete nodules Kidneys: No solid mass or hydronephrosis Vessels and lymph nodes: Large portal venous varices, with a large splenorenal shunt. No abdominal ao rtic aneurysm. No pathologic lymph nodes by size criteria. Bowel and peritoneum: No evidence of small bowel obstruction. There is nonspecific mesenteric fat str anding. Mild presacral edema. Body wall: Moderate diffuse anasarca. Pelvis: Small amount of bladder gas, probably iatrogenic, correlate with any recent instrumentation a nd urinalysis. The prostate is nonenlarged, not well evaluated on CT. Small fat-containing inguinal h ernias. Bones: Degenerative changes. Indeterminate sclerotic lesion in the anterior L3 vertebral body. IMPRESSION: Cirrhosis and sequelae of portal hypertension. Large splenorenal shunt is visualized. In the setting of cirrhosis, consider future HCC screening. Partially visualized right greater left pleural effusions and lower lung opacities/atelectasis. There is also cardiomegaly and trace pericardial effusion. Diffuse moderate anasarca. Indeterminate sclerotic lesion in the anterior L3 vertebral body, differential includes a bone island . Correlate with any history of malignancy. Other findings as above. Reviewed by: Stanton Alejandre MD on 12/05/2023 4:55 PM PST Approved by: Stanton Alejandre MD on 12/05/2023 4:55 PM PST Station ID: [id number]
[2023-12-05] MEDS: iohexoL-300 100 ML VIAL IVP ONE (17:00)
--- NOTE | 2023-12-05 17:15 | PROVIDER PROGRESS NOTE ---
Assessment/Plan - Problem List (1) Acute hypoxemic respiratory failure Assessment/Plan: Echocardiogram performed on November 27, 2023 revealed a ejection fraction of 55- 60%. Diastolic dysfunction was not able to be evaluated. The right ventricle is mildly to moderately enlarged. Right ventricular systolic function is normal. The RVSP is 45 mmHg.The above echo would not account for patient's anasarca. A CT scan of the abdomen and pelvis was performed today(December 05, 2023) revealed a moderate right pleural effusion with basilar atelectasis. The liver had an irregular nodular contour. There were large portal venous varices with large splenic splenorenal shunt. Radiologist impression is patient has cirrhosis and sequelae of portal hypertension with a large splenorenal shunt. There was also a sclerotic lesion in the anterior L3 vertebral body and differential would include a bone island. Malignancy cannot be ruled out. It is highly likely that patient's anasarca is secondary to his underlying liver disease given the results of his recent CT scan of his abdomen pelvis. 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 The above findings will make it difficult to treat this degree of edema. Plan: Cont Lasix iv, watching I's and O's Wean oxygen as tolerated. At this time he has no qualifying diagnosis for oxygen therapy. 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 Plan: Cont diuresis Sodium and fluid restriction. Thoracentesis as needed. Recommend patient have consultation with legal contracts specialist. (3) Anasarca Assessment/Plan: Patient Cook has been removed and he continues to urinate. Continue to monitor. Continue IV Lasix and consider transitioning to p.o. medications soon. (4) Scrotal edema Assessment/Plan: Patient continues to have significant scrotal edema but it has improved. Continue to monitor. (5) Urethral meatus pain Assessment/Plan: Continue to monitor. (6) Alcohol abuse Patient counseled to stop drinking alcohol. Plan: Cont daily thiamine orally and MOV daily Social work consult regarding alcohol abuse done (7) Morbid Obesity BMI 40-44.9 Continue to monitor his weight. - Current Meds Current Meds: Current Medications Generic Name Dose Route Start Last Admin Trade Name Freq PRN Reason Stop Dose Admin Acetaminophen 650 mg 11/29/23 22:09 12/03/23 13:47 Acetaminophen 325 Mg Tablet PO 650 mg Q4HR PRN Administration Pain or Fever > 38C (100.4F) Carvedilol 3.125 mg 11/28/23 21:00 12/05/23 10:05 Carvedilol 3.125 Mg Tablet PO 3.125 mg BID ILA Administration Furosemide 40 mg 11/30/23 09:00 12/05/23 10:04 Furosemide 40 Mg/4 Ml Vial IVP 40 mg DAILY ILA Administration Heparin Sodium (Porcine) 5,000 unit 11/25/23 21:00 12/05/23 10:07 Heparin 5,000 Unit/Ml Vial SUBQ Not Given BID ILA Lidocaine HCl 2 ml 12/01/23 15:00 12/05/23 15:43 Lidocaine Jelly 2% 6 Ml Jel.Pf.Chucky TOP Not Given QID ILA Magnesium Oxide 400 mg 11/30/23 17:00 12/05/23 10:04 Magnesium Oxide 400 Mg Tablet PO 400 mg DAILYWM ILA Administration Neomycin/Polymyxin/Bacitracin 1 packet 12/01/23 21:00 12/05/23 10:07 Neomycin/Bacitra/Polymyx Oint Packet TOP 1 packet BID ILA Administration Polyethylene Glycol 17 gm 11/28/23 09:00 12/05/23 10:06 Polyethylene Glycol 3350 17 Gm Packet PO 17 gm DAILY ILA Administration Multivit/Folic Acid/Iron 1 tab 11/29/23 08:00 12/05/23 10:04 Vitamin Tablet PO 1 tab DAILYWM ILA Administration Sodium Chloride 10 ml 11/25/23 17:00 12/05/23 10:04 Sodium Chloride Flush 0.9% 10 Ml Syringe IVP 10 ml 0100,0900,1700 ILA Administration Sodium Chloride 2 sprays 11/30/23 17:27 12/02/23 00:22 Sodium Chloride 0.65% Nasal [place] SUBHASH 2 sprays Q4HR PRN Administration Nasal Congestion Spironolactone 50 mg 11/29/23 09:00 12/05/23 10:05 Spironolactone 25 Mg Tablet PO 50 mg DAILY ILA Administration Thiamine HCl 100 mg 11/29/23 09:00 12/05/23 10:05 Thiamine 100 Mg Tablet PO 100 mg DAILY ILA Administration - Lab Result Fish Bone Diagrams: 12/04/23 04:43 12/04/23 04:43 - Additional Planning My Orders: My Active Orders 12/06/23 00:01 NPO [DIET] Subjective - Subjective Patient Reports: Other (Alert. Following commands. Joey removed recently. He continues to require oxygen and reports shortness when arriving from his bed and walking across the room.) Objective Vital Signs: Vital Signs - 24 hr 12/04/23 12/04/23 12/04/23 19:24 20:15 23:10 Temperature 37 C Heart Rate [ 65 Brachial] Respiratory 17 Rate Blood Pressure 120/59 L [Right Brachial artery] O2 Saturation 93 93 If not protocol 2 2 3 : Oxygen Flow, liters/minute 12/04/23 12/05/23 12/05/23 23:34 07:21 07:58 Temperature 37.1 C 36.7 C Heart Rate [ 72 69 Brachial] Respiratory 16 18 Rate Blood Pressure 119/62 135/59 H [Right Brachial artery] O2 Saturation 94 93 If not protocol 3 3 3 : Oxygen Flow, liters/minute 12/05/23 12/05/23 11:49 14:00 Temperature 37.1 C Heart Rate [ 82 Brachial] Respiratory 18 16 Rate Blood Pressure 138/68 H [Right Brachial artery] O2 Saturation 88 L 94 If not protocol 1 2 : Oxygen Flow, liters/minute Oxygen O2 Source Nasal cannula Oxygen Flow Rate 2 I&O (Last 24 Hrs): Intake and Output Totals x24h 12/03/23 12/04/23 12/05/23 23:59 23:59 23:59 Intake Total 450 200 650 Output Total 1960 2500 1600 Balance -1510 -2300 -950 General: Alert, Oriented x3, No acute distress HEENT: PERRLA Neck: Supple, No JVD Neuro: Alert, Non Focal Cardiovascular: Regular rate, Normal S1, Normal S2, No murmurs Respiratory: Other (Good air exchange in all lung freire. Slight dimininshed in right lower lung field. No wheezing. No crackles.) Abdomen: Normal bowel sounds, Soft, No tenderness Extremities: No cyanosis Skin: No rashes - Results Results: Laboratory Results WBC 5.4 x10^3/uL (4.8-10.8) 12/02/23 05:07 RBC 3.35 10^6/uL (4.70-6.10) L 12/02/23 05:07 Hgb 10.9 g/dL (14.0-18.0) L 12/04/23 04:43 Hct 33.5 % (42.0-52.0) L 12/02/23 05:07 MCV 100.0 fL (80.0-94.0) H 12/02/23 05:07 MCH 32.2 pg (27.0-31.0) H 12/02/23 05:07 MCHC 32.2 g/dL (32.0-36.0) 12/02/23 05:07 RDW 15.9 % (12.0-15.0) H 12/02/23 05:07 Plt Count 70 10^3/uL (130-450) L 12/02/23 05:07 MPV 8.8 fL (7.4-11.4) 12/02/23 05:07 Neut # (Auto) 3.9 10^3/uL (1.5-6.6) 11/25/23 10:46 Lymph # (Auto) 1.0 10^3/uL (1.5-3.5) L 11/25/23 10:46 Mccracken # (Auto) 0.9 10^3/uL (0.0-1.0) 11/25/23 10:46 Eos # (Auto) 0.1 10^3/uL (0.0-0.7) 11/25/23 10:46 Baso # (Auto) 0.0 10^3/uL (0.0-0.1) 11/25/23 10:46 Absolute Nucleated RBC 0.00 x10^3/uL 11/25/23 10:46 Nucleated RBC % 0.0 /100WBC 11/25/23 10:46 Sodium 136 mmol/L (135-145) 12/04/23 04:43 Potassium 4.6 mmol/L (3.5-4.5) H 12/04/23 04:43 Chloride 102 mmol/L (101-111) 12/04/23 04:43 Carbon Dioxide 31 mmol/L (21-32) 12/04/23 04:43 Anion Gap 3.0 (6-13) L 12/04/23 04:43 BUN 20 mg/dL (6-20) 12/04/23 04:43 Creatinine 0.7 mg/dL (0.6-1.3) 12/04/23 04:43 Estimated GFR (MDRD) 114 (>89) 12/04/23 04:43 Glucose 79 mg/dL (74-104) 12/04/23 04:43 Calcium 8.6 mg/dL (8.5-10.3) 12/04/23 04:43 Phosphorus 2.9 mg/dL (2.5-5.0) 12/01/23 05:35 Magnesium 1.8 mg/dL (1.7-2.3) 12/04/23 04:43 Iron 94 ug/dL (50-212) 12/01/23 05:35 TIBC 213 ug/dL (250-450) L 12/01/23 05:35 % Saturation 44 % (20-50) 12/01/23 05:35 Transferrin 152 mg/dL (203-362) L 12/01/23 05:35 Total Bilirubin 4.1 mg/dL (0.2-1.0) H 11/27/23 05:47 AST 21 IU/L (10-42) 11/27/23 05:47 ALT 15 IU/L (10-60) 11/27/23 05:47 Alkaline Phosphatase 101 IU/L (42-121) 11/27/23 05:47 Troponin I High Sens 5.1 ng/L (2.3-19.7) 11/25/23 10:46 B-Natriuretic Peptide 249 pg/mL (5-100) H 11/29/23 05:20 Total Protein 5.7 g/dL (6.4-8.9) L 11/27/23 05:47 Albumin 3.3 g/dL (3.2-5.5) 11/29/23 05:20 Globulin 2.5 g/dL (2.1-4.2) 11/27/23 05:47 Albumin/Globulin Ratio 1.3 (1.0-2.2) 11/27/23 05:47 Lipase 347 U/L (11-82) H 11/25/23 10:46 Vitamin B12 777 pg/mL (180-914) 11/29/23 05:20 Folate 5.6 ng/mL (5.90 - >24.8) L 11/29/23 05:20 Fluid Source PLEURAL 11/30/23 12:30 Fluid Color STRAW 11/30/23 12:30 Fluid Clarity TURBID 11/30/23 12:30 Fluid WBC 716 /mm^3 11/30/23 12:30 Fluid RBC 67662 /mm^3 11/30/23 12:30 Fluid Neutrophils % 1.0 % 11/30/23 12:30 Fluid Lymphocytes % 41.0 % 11/30/23 12:30 Fluid Monocytes % 6.0 % 11/30/23 12:30 Fluid Macrophages % 49.0 % 11/30/23 12:30 Fld Mesothelial Cell % 3.0 % 11/30/23 12:30 Fluid Glucose 101 mg/dL (.) 11/30/23 12:30 Fluid Total Protein 1.7 g/dL (.) 11/30/23 12:30 Fluid LDH 315 IU/L (.) 11/30/23 12:30 ABX Reporting Has patient been on IV antibiotics over the past 48 hours?: No Current Medications - Current Medications Current Medications: Active Medications Acetaminophen (Acetaminophen 325 Mg Tablet) 650 mg PO Q4HR PRN PRN Reason: Pain or Fever > 38C (100.4F) Last Admin: 12/03/23 13:47 Dose: 650 mg Carvedilol (Carvedilol 3.125 Mg Tablet) 3.125 mg PO BID [facility] Last Admin: 12/05/23 10:05 Dose: 3.125 mg Furosemide (Furosemide 40 Mg/4 Ml Vial) 40 mg IVP DAILY [facility] Last Admin: 12/05/23 10:04 Dose: 40 mg Heparin Sodium (Porcine) (Heparin 5,000 Unit/Ml Vial) 5,000 unit SUBQ BID [facility] Last Admin: 12/05/23 10:07 Dose: Not Given Lidocaine HCl (Lidocaine Jelly 2% 6 Ml Jel.Pf.Chucky) 2 ml TOP QID [facility] Last Admin: 12/05/23 15:43 Dose: Not Given Magnesium Oxide (Magnesium Oxide 400 Mg Tablet) 400 mg PO DAILYWM [facility] Last Admin: 12/05/23 10:04 Dose: 400 mg Neomycin/Polymyxin/Bacitracin (Neomycin/Bacitra/Polymyx Oint Packet) 1 packet TOP BID [facility] Last Admin: 12/05/23 10:07 Dose: 1 packet Polyethylene Glycol (Polyethylene Glycol 3350 17 Gm Packet) 17 gm PO DAILY [facility] Last Admin: 12/05/23 10:06 Dose: 17 gm Multivit/Folic Acid/Iron ( Vitamin Tablet) 1 tab PO DAILYWM [facility] Last Admin: 12/05/23 10:04 Dose: 1 tab Sodium Chloride (Sodium Chloride Flush 0.9% 10 Ml Syringe) 10 ml IVP PRN PRN PRN Reason: NEEDED PER PROVIDER ORDERS Sodium Chloride (Sodium Chloride Flush 0.9% 10 Ml Syringe) 10 ml IVP 0100,0900,1700 [facility] Last Admin: 12/05/23 10:04 Dose: 10 ml Sodium Chloride (Sodium Chloride 0.65% Nasal [place]) 2 sprays SUBHASH Q4HR PRN PRN Reason: Nasal Congestion Last Admin: 12/02/23 00:22 Dose: 2 sprays Spironolactone (Spironolactone 25 Mg Tablet) 50 mg PO DAILY [facility] Last Admin: 12/05/23 10:05 Dose: 50 mg Thiamine HCl (Thiamine 100 Mg Tablet) 100 mg PO DAILY [facility] Last Admin: 12/05/23 10:05 Dose: 100 mg carvediloL [Coreg] 3.125 mg PO BID 11/23/23
[2023-12-06 04:57] LABS: CALCIUM 8.4 mg/dL (8.5-10.3); CREATININE 0.6 mg/dL (0.6-1.3); MAGNESIUM 1.7 mg/dL (1.7-2.3); PHOSPHORUS 3.1 mg/dL (2.5-5.0); POTASSIUM 4.2 mmol/L (3.5-4.5)
--- NOTE | 2023-12-06 16:29 | PROVIDER PROGRESS NOTE ---
Subjective - Prog Note Date Prog Note Date: 12/06/23 Prog Note Time: 16:27 - Subjective Pt reports feeling: Improved (Swelling in scrotum and penis have decreased a bit but scrotum is still painful at times when he accidently sits on it. States he was drinking more water at home lately. Reports frustration, wants to go home. Had a long talk about his diagnosis and prognosis, all questions answered.) Current Medications - Current Medications Current Medications: Active Medications Generic Name Dose Route Start Last Admin Trade Name Freq PRN Reason Stop Dose Admin Acetaminophen 650 mg 11/29/23 22:09 12/06/23 06:08 Acetaminophen 325 Mg Tablet PO 650 mg Q4HR PRN Administration Pain or Fever > 38C (100.4F) Carvedilol 3.125 mg 11/28/23 21:00 12/06/23 09:03 Carvedilol 3.125 Mg Tablet PO 3.125 mg BID ILA Administration Furosemide 40 mg 12/07/23 09:00 Furosemide 40 Mg Tablet PO DAILY ILA Heparin Sodium (Porcine) 5,000 unit 11/25/23 21:00 12/06/23 09:05 Heparin 5,000 Unit/Ml Vial SUBQ Not Given BID ILA Lidocaine HCl 2 ml 12/01/23 15:00 12/06/23 13:01 Lidocaine Jelly 2% 6 Ml Jel.Pf.Chucky TOP Not Given QID ILA Magnesium Oxide 400 mg 11/30/23 17:00 12/06/23 09:03 Magnesium Oxide 400 Mg Tablet PO 400 mg DAILYWM ILA Administration Neomycin/Polymyxin/Bacitracin 1 packet 12/01/23 21:00 12/06/23 09:04 Neomycin/Bacitra/Polymyx Oint Packet TOP 1 packet BID ILA Administration Polyethylene Glycol 17 gm 11/28/23 09:00 12/06/23 09:03 Polyethylene Glycol 3350 17 Gm Packet PO 17 gm DAILY ILA Administration Multivit/Folic Acid/Iron 1 tab 11/29/23 08:00 12/06/23 09:03 Vitamin Tablet PO 1 tab DAILYWM ILA Administration Sodium Chloride 10 ml 11/25/23 12:50 Sodium Chloride Flush 0.9% 10 Ml Syringe IVP PRN PRN NEEDED PER PROVIDER ORDERS Sodium Chloride 10 ml 11/25/23 17:00 12/06/23 09:06 Sodium Chloride Flush 0.9% 10 Ml Syringe IVP 10 ml 0100,0900,1700 ILA Administration Sodium Chloride 2 sprays 11/30/23 17:27 12/02/23 00:22 Sodium Chloride 0.65% Nasal [place] SUBHASH 2 sprays Q4HR PRN Administration Nasal Congestion Spironolactone 50 mg 11/29/23 09:00 12/06/23 09:04 Spironolactone 25 Mg Tablet PO 50 mg DAILY ILA Administration Thiamine HCl 100 mg 11/29/23 09:00 12/06/23 09:04 Thiamine 100 Mg Tablet PO 100 mg DAILY ILA Administration carvediloL [Coreg] 3.125 mg PO BID 11/23/23 Objective - Vital Signs/Intake & Output Vital Signs: Vital Signs x48h Temp Pulse Pulse Pulse Resp BP BP 12/06/23 15:52 37.5 C 69 20 119/51 L 12/06/23 14:30 79 78 131/65 H BP Pulse Ox O2 Flow Rate 12/06/23 15:52 94 2 12/06/23 14:30 88/58 L Intake & Output: Intake & Output 12/03/23 12/04/23 12/05/23 12/06/23 23:59 23:59 23:59 23:59 Intake Total 974 167 1289 0 Output Total 1960 2500 2150 1925 Balance -1510 -2300 -900 -1925 - Objective General Appearance: positive: No acute distress, Alert Eyes Bilateral: positive: Normal inspection Respiratory: positive: No respiratory distress (On O2, bibasilar crackles, more diminished on right. No wheezing.) Cardiovascular: positive: Regular rate & rhythm, No murmur Abdomen: positive: Non-tender, Other (suspected hepatomegaly, exam difficult due to body habitus, abdomen distended with edema) Skin: positive: Color nml, No rash, Warm Extremities: positive: Non-tender, Pedal edema (2-3+ pedal edema, 2-3+ R abdominal edema, diffuse anasarca) Neurologic/Psychiatric: positive: Oriented x3, Mood/affect nml - Lab Results Fish Bones: 12/04/23 04:43 12/06/23 04:31 Other Labs: Lab Results x24hrs 12/06/23 12/06/23 Range/Units 08:49 04:31 Sodium 136 (135-145) mmol/L Potassium 4.2 (3.5-4.5) mmol/L Chloride 103 (101-111) mmol/L Carbon Dioxide 31 (21-32) mmol/L Anion Gap 2.0 L (6-13) BUN 20 (6-20) mg/dL Creatinine 0.6 (0.6-1.3) mg/dL Estimated GFR (MDRD) 137 (>89) Glucose 82 (74-104) mg/dL Calcium 8.4 L (8.5-10.3) mg/dL Phosphorus 3.1 (2.5-5.0) mg/dL Magnesium 1.7 (1.7-2.3) mg/dL Ferritin 81.8 (23.9-336.2) ng/mL - Diagnostic Imaging Diagnostic Imaging Results: positive: Final report reviewed (Abdominal CT report reviewed.) ABX Reporting Has patient been on IV antibiotics over the past 48 hours?: No Assessment/Plan - Problem List (1) Hypoxia Impression: Was wearing 2L O2 at home with exertion (not prescribed), says he didn't quite meet criteria for Rx but "inherited" a concentrator. Review of vital signs shows drop in SpO2 on RA down to 70s, but documentation only shows up to 3L O2 which does not meet criteria for respiratory failure. Still needing O2 off and on here . Echo 11/27 with EF 55-60% and normal RV systolic function. CT abd/pelvis 12/05 showed moderate R pleural effusion with basilar atelectasis. Liver showed portal HTN and splenorenal shunt which is likely cause of his hypoxia. Plan: Monitor I&O Continue Lasix and spironolactone Monitor electrolytes on diuresis Wean O2 as able, plan for home O2 evaluation in AM (2) Pleural effusion Impression: As above, due to liver disease, likely hepatic hydrothorax. Plan: Diuretics, Na restriction, wean O2 as able Thoracentesis as needed Will need outpatient GI consult (3) Cirrhosis of liver Impression: Suspect due to EtOH use. Reports drinking ~a box of wine per day. Weight gain/fluid retention and dyspnea reportedly slow onset since Thanks, worse over the past week. Was taking Lasix 80 mg bid at home without much response. CT abd/pelvis 12/05 showed moderate R pleural effusion, trace L pleural effusion, large splenorenal shunt, large portal venous varices, and possible perichole varices. Platelets 70k, Tbili 4.1, ALT 15, AST 21, ALP 101, all consistent with cirrhosis. Long, gabino discussion held with patient today regarding the severity of his disease and poor prognosis. No INR available but no evidence of elevated discriminant function. Child-August Class B. Plan: Continue Lasix and spironolactone Wean O2 as able Low salt diet Continue PO Mg replacement (K has been stable) Stop SQ heparin due to platelets<100k Check ferritin, hepatitis panel, ceruloplasmin, autoimmune labs to eval for hemochromatosis, hepatitis, AIH, Manuel's disease Will need outpatient GI follow-up, he was told he is not a candidate for transplant consideration due to EtOH use (needs 6 months sobriety) Stop all EtOH use Continue Coreg which will help with portal HTN and prevention of esophageal varices Qualifiers: Hepatic cirrhosis type: alcoholic cirrhosis Qualified Code(s): K70.30 - Alcoholic cirrhosis of liver without ascites (4) Peripheral edema Impression: due to anasarca/liver disease Plan: per above (5) Scrotal edema Impression: Due to anasarca/liver disease, improved Plan: as above (6) Urethral meatus pain Impression: Improved with topical meds (7) Obesity Impression: Weight trending down with diuresis. Reports baseline weight is ~280 lbs. Plan: Outpatient follow up Recommend sleep study to eval for sleep apnea (reports snoring at home) Qualifiers: Body mass index: BMI 40.0-44.9 Qualified Code(s): E66.01 - Morbid (severe) obesity due to excess calories; Z68.41 - Body mass index [BMI] 40.0-44.9, adult (8) Alcohol abuse Impression: Reports daily EtOH use. Folate low at 5.6. Plan: Counseled to strictly stop all EtOH use. Offered resources, says he does not need resources at this time Continue thiamine, Mg, multivitamin (9) Abnormal CT of the abdomen Impression: Abd/pelvis CT this admit showed L3 sclerotic lesion, bone island vs possible malignancy. No symptoms. Plan: outpatient follow up
[2023-12-07 06:11] LABS: HBsAG SCREEN Negative (Negative); HCV AB Non Reactive (Non Reactive); HEPATITIS B CORE IGM AB Negative (Negative)
[2023-12-07 07:45] VITALS: O2SAT 91
--- NOTE | 2023-12-07 09:11 | DISCHARGE SUMMARY ---
Discharge Summary Admit Date: 11/25/23 Discharge Date: 12/07/23 Discharging Provider: Ameena Dos Santos Code Status: Attempt Resuscitation Condition at Discharge: Fair Discharge Disposition: 01 Home, Self Care - DIAGNOSES Admission Diagnoses: Current Active Problems Problem Status Onset Acute hypoxemic respiratory failure Acute Peripheral edema Acute Urethral meatus pain Acute Scrotal edema Acute Cirrhosis of liver Acute Obesity Acute Obesity Acute Alcohol abuse Acute Alcohol abuse Acute Abnormal CT of the abdomen Acute Abnormal CT of the abdomen Acute Discharge Diagnoses with Status of Each Condition: (1) Hypoxia Impression: Was wearing 2L O2 at home with exertion (not prescribed). Will go home with O2 2L with rest and 4L with exertion. Echo 11/27 with EF 55-60% and normal RV systolic function. CT abd/pelvis 12/05 showed moderate R pleural effusion. Liver showed portal HTN and splenorenal shunt which is likely cause of his hypoxia. Plan: Lasix and spironolactone, home O2 (2) Pleural effusion Impression: Due to liver disease, likely hepatic hydrothorax. Plan: Diuretics, Na restriction, home O2. Will need outpatient GI consult. (3) Cirrhosis of liver Impression: Due to EtOH use. Reports drinking ~a box of wine per day. Weight gain/fluid retention and dyspnea slow onset since , worse over the past week. Was taking Lasix 80 mg bid at home without response. CT abd/pelvis 12/05 showed moderate R pleural effusion, trace L pleural effusion, large splenorenal shunt, large portal venous varices, and possible perichole varices. Platelets 70k, Tbili 4.1, consistent with cirrhosis. Plan: Continue Lasix and spironolactone. Home O2. Low salt diet. Ferritin, hepatitis panel, ceruloplasmin negative. Will need outpatient GI follow-up, he was told he is not a candidate for transplant consideration due to EtOH use. Stop all EtOH use Continue Coreg which will help with portal HTN and prevention of esophageal varices (4) Peripheral edema Impression: due to anasarca/liver disease Plan: diuretics (5) Scrotal edema Impression: Due to anasarca/liver disease, improved Plan: diuretics (6) Urethral meatus pain Impression: Improved with topical neosporin (7) Obesity Impression: Weight trending down with diuresis. Reports baseline weight is ~280 lbs. Weight at discharge 138.5 kg. Plan: Recommend sleep study to eval for sleep apnea (reports snoring at home) (8) Alcohol abuse Impression: Reports daily EtOH use. Folate low at 5.6. Plan: Counseled to strictly stop all EtOH use. Offered resources, says he does not need resources at this time. Continue Mg, multivitamin. (9) Abnormal CT of the abdomen Impression: Abd/pelvis CT this admit showed L3 sclerotic lesion, bone island vs possible malignancy. No symptoms. Plan: outpatient follow up - HPI History of Present Illness: 63 yo M who presented for shortness of breath and generalized edema, had noticed increasing abdominal girth since , worse over past week. Seen 11/22/23 in ED and sent home on diuretics, returned to ED 11/23/23 for thoracentesis with removal of 2L fluid, reported has been using O2 at home via concentrator and taking diuretics. - HOSPITAL COURSE Hospital Course: Workup for anasarca included echo and CT abdomen/pelvis showed significant portal hypertension and cirrhosis of the liver, the cause of his anasarca, fluid overload, and shortness of breath. He improved with diuresis and is stable to go home. Patient was hypoxic on room air with O2 sats 85%, however with 2L his O2 sats improved to 93%. On ambulation on 2L his O2 sats were 83%, on 3L sats 87%, and on 4L improved to 92%. I recommend home O2 2L with rest and 4L with exertion to treat congestive heart failure. Workup showed suspected hepatic hydrothorax, which indicates advanced liver disease with poor prognosis, which was described to the patient in detail. - ALLERGIES Allergies/Adverse Reactions: Allergies Allergy/AdvReac Type Severity Reaction Status Date / Time No Known Drug Allergies Allergy Verified 11/23/23 09:39 - MEDICATIONS Home Medications: Ambulatory Orders Medication Instructions Recorded Confirmed carvediloL [Coreg] 3.125 mg PO BID 11/23/23 11/25/23 Acetaminophen [Tylenol] 650 mg PO Q4HR PRN tab 12/07/23 Furosemide [Lasix] 40 mg PO DAILY #30 tab 12/07/23 Magnesium Oxide [Mag Ox] 400 mg PO DAILYWM #30 tab 12/07/23 Neomyci/Bacitra/Poly Oint Pkt 1 packet TOP BID packet 12/07/23 [Neosporin Oint Pkt] Pnv No.121/Iron/Folic Acid 1 each PO DAILY #100 tablet 12/07/23 [ Multivitamin Tablet] Spironolactone [Aldactone] 50 mg PO DAILY #30 tab 12/07/23 Thiamine [Vitamin B-1] 100 mg PO DAILY #30 tab 12/07/23 - PHYSICAL EXAM AT DISCHARGE General Appearance: positive: No acute distress, Alert Respiratory: positive: No respiratory distress, Other (diminshed breath sounds bilaterally, no wheezes, rales, rhonchi) Cardiovascular: positive: Regular rate & rhythm Peripheral Pulses: positive: Other (unable to palpate but feet are warm) Abdomen: positive: Non-tender, Other (mild distention with fluid) Skin: positive: Color nml, No rash, Warm Extremities: positive: Non-tender Neurologic/Psychiatric: positive: Oriented x3, Mood/affect nml - LABS Result Diagrams: 12/04/23 04:43 12/06/23 04:31 - SEPSIS Current Stage of Sepsis: Ruled out - FOLLOW UP Follow Up: Needs follow-up with PCP. Needs follow-up with GI for consult for liver disease. - TIME SPENT Time Spent in Discharge (Minutes): 50
--- NOTE | 2023-12-07 09:33 | Discharge Plan ---
Discharge Plan Problem Reviewed?: Yes Disposition: Home, Self Care Condition: Fair Prescriptions: Spironolactone [Aldactone] 50 mg PO DAILY #30 tab Furosemide [Lasix] 40 mg PO DAILY #30 tab Magnesium Oxide [Mag Ox] 400 mg PO DAILYWM #30 tab Pnv No.121/Iron/Folic Acid [ Multivitamin Tablet] 1 each PO DAILY #100 tablet Thiamine [Vitamin B-1] 100 mg PO DAILY #30 tab Diet: Low Sodium (less than 2 grams a day) Activity Restrictions: Activity as Tolerated Shower Restrictions: No Driving Restrictions: No Assistance Devices: Wheelchair, Walker Health Concerns: You came to emergency room because of severe water retention swelling all over your body and shortness of breath. All of this started around . At the beginning of November you were sent home on water pills. You came back the next day on 11/25/23 and underwent a needle insertion into the chest cavity to remove water. This is called a thoracetesis. In spite of this, you continued be short of breath and had to come back to the emergency room a few days later. This was in spite of taking 80 mg of Lasix twice a day which is a very strong diuresis medicine. We admitted you to the hospital and began you on intravenous medicine to make your kidneys diuresis even more. He also underwent a second thoracentesis on December 01. You were admitted at a weight of 156.4 kg. At discharge you are 138.5 kg. This is approximately 40 pounds of water weight that you have lost. You still have a ways to go with significant amount of water in your legs, inside your abdomen, and outside your lungs. We feel that your problem is not congestive heart failure but liver failure. 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 While you still have quite a bit of water weight to lose, you do not want to be in the hospital anymore. You would prefer to go home and try and take care of this at home. Plan of Treatment: 1. Please see your primary care provider in follow-up in the next week. They need to adjust your Lasix dose or your spironolactone dose. 2. I would recommend weekly blood test to check a BMP which includes potassium, blood urea nitrogen, and creatinine. We need to make sure that your potassium and kidney function stays stable with his diuresis. 3. You need to weigh yourself daily. If you gain more than 2 or 3 pounds in a day, you need to increase your diuretic. Right now I have you on 40 mg once a day. For the day you gain weight, go to 40 mg twice a day. 4. You must remain on a low-salt diet. You should eat fresh produce, grilled meats, minimal pasta or carbohydrates. If you eat fresh produce and greater only, it controls the amount of salt that goes into your diet. You should not eat any more than 2000 mg of salt a day. 5. Drinking more water only causes increased water retention. Do not drink more than 1500 cc of combined liquids during the day. That means water, coffee, juice, tea, soda must be measured and added up to be within 1500 cc/day of fluid 6. Your alcoholism, unfortunately, is the cause of your cirrhosis. You cannot drink any alcohol at all, ever again. 7. Please have your primary care provider refer you to a liver specialist so they can continue to improve your care. Care Goals: To have your liver recover from alcohol abuse. If your liver can recover, some of your cirrhosis can regress and you can control the water retention much better. Assessment: Patient is alert, oriented per to person, place, situation. He promises to follow through. No Smoking: If you smoke, Please STOP! Call for help.
[2023-12-07] MEDS: FUROSEMIDE 40 MG TABLET PO SCH (09:37)
[2023-12-07 09:51] VITALS: BP 128/52
== END 2023-12-07 14:05 | disposition home or self-care (01) | DRG 189 ==
LOC: ED 09:24 → MS3 12:50
PROVIDERS: ADMIT Internal Medicine; ATTEND Specialist
PROC: 0W993ZZ Drainage of Right Pleural Cavity, Percutaneous Approach (ICD-10-PCS; principal; 2023-11-30)
DX: J96.01 Acute respiratory failure with hypoxia (principal); J91.8 Pleural effusion in other conditions classified elsewhere; K76.6 Portal hypertension; Z68.41 Body mass index [BMI] 40.0-44.9, adult; I11.0 Hypertensive heart disease with heart failure; I50.9 Heart failure, unspecified; E66.01 Morbid (severe) obesity due to excess calories; K74.60 Unspecified cirrhosis of liver; N36.8 Other specified disorders of urethra; F10.10 Alcohol abuse, uncomplicated; Z79.899 Other long term (current) drug therapy
CPT/HCPCS: 32555; 36415; 71045; 74177; 80048; 80053; 80074; 82040; 82390; 82607; 82728; 82746; 82945; 83540; 83615; 83690; 83735; 83880; 84100; 84132; 84157; 84466; 84484; 85018; 85025; 85027; 87070; 87205; 89051; 93005; 93307; 94761; 96374; 97161; 99285; A9270; J1940; J7040; P9047; Q9967

== ENCOUNTER 2023-12-14 15:41 | Outpatient (CLI) | payer OTHER ==
[2023-12-14 18:09] LABS: ALBUMIN 3.1 g/dL (3.2-5.5); ALBUMIN/GLOBULIN RATIO 1.1 (1.0-2.2); ALKALINE PHOSPHATASE 148 IU/L (42-121); ALT ALANINE AMINOTRANSFERASE 26 IU/L (10-60); AST ASPARTATE AMINOTRANSFERASE 38 IU/L (10-42); BUN - BLOOD UREA NITROGEN 16 mg/dL (6-20); CALCIUM 8.6 mg/dL (8.5-10.3); CARBON DIOXIDE - CO2 27 mmol/L (21-32); CHLORIDE 103 mmol/L (101-111); CHOL/HDL RATIO 2.2 (<5.0); CHOLESTEROL 72 mg/dL; CREATININE 0.7 mg/dL (0.6-1.3); GFR - MDRD 114 (>89); GLUCOSE 109 mg/dL (74-104); HDL CHOLESTEROL 33 mg/dL; LDL CHOLESTEROL,CALCULATED 15 mg/dL; LDL/HDL RATIO 0.5 (<3.6); POTASSIUM 4.6 mmol/L (3.5-4.5); SODIUM 133 mmol/L (135-145); TOTAL PROTEIN 5.9 g/dL (6.4-8.9); TRIGLYCERIDES 120 mg/dL (48-352); VLDL CHOLESTEROL 24 mg/dL
[2023-12-14 18:19] LABS: THYROID STIMULATING HORMONE 5.24 uIU/mL (0.34-5.60)
[2023-12-14 20:28] LABS: ESTIMATED AVERAGE GLUCOSE 71 mg/dL (70-100); HEMOGLOBIN A1c% 4.1 % (4.27-6.07)
== END 2023-12-14 15:42 | disposition home or self-care (01) ==
LOC: LAB.N 15:41
PROVIDERS: ATTEND Family Medicine
DX: I10 Essential (primary) hypertension (principal); K70.30 Alcoholic cirrhosis of liver without ascites; J90 Pleural effusion, not elsewhere classified
CPT/HCPCS: 36415; 80053; 80061; 83036; 83721; 83880; 84443

== ENCOUNTER 2024-01-03 17:36 | Outpatient (CLI) | payer OTHER ==
[2024-01-03 21:28] LABS: HCT - HEMATOCRIT 32.6 % (42.0-52.0); HGB - HEMOGLOBIN 10.6 g/dL (14.0-18.0); MEAN CORPUSCULAR HEMOGLOBIN 31.6 pg (27.0-31.0); MEAN CORPUSCULAR HGB CONC 32.5 g/dL (32.0-36.0); MEAN CORPUSCULAR VOLUME 97.3 fL (80.0-94.0); MEAN PLATELET VOLUME 9.9 fL (7.4-11.4); RED BLOOD COUNT 3.35 10^6/uL (4.70-6.10); WHITE BLOOD COUNT 3.3 x10^3/uL (4.8-10.8)
[2024-01-03 21:44] LABS: ALBUMIN 3.2 g/dL (3.2-5.5); BILIRUBIN,TOTAL 3.7 mg/dL (0.2-1.0); CALCIUM 8.9 mg/dL (8.5-10.3); CREATININE 0.7 mg/dL (0.6-1.3); POTASSIUM 4.2 mmol/L (3.5-4.5); TOTAL PROTEIN 6.3 g/dL (6.4-8.9)
== END 2024-01-03 17:37 | disposition home or self-care (01) ==
LOC: LAB.N 17:36
PROVIDERS: ATTEND Family Medicine
DX: F10.11 Alcohol abuse, in remission (principal); K76.6 Portal hypertension; K70.30 Alcoholic cirrhosis of liver without ascites
CPT/HCPCS: 36415; 80053; 83880; 85027

== ENCOUNTER 2024-02-01 15:39 | Outpatient (CLI) | payer OTHER ==
[2024-02-01 18:15] LABS: BASOPHILS # (AUTO) 0.1 10^3/uL (0.0-0.1); BASOPHILS % (AUTO) 1.3 %; EOSINOPHILS # (AUTO) 0.4 10^3/uL (0.0-0.7); EOSINOPHILS % (AUTO) 9.1 %; HCT - HEMATOCRIT 34.8 % (42.0-52.0); HGB - HEMOGLOBIN 11.8 g/dL (14.0-18.0); LYMPHOCYTES # (AUTO) 1.3 10^3/uL (1.5-3.5); LYMPHOCYTES % (AUTO) 32.1 %; MEAN CORPUSCULAR HEMOGLOBIN 32.2 pg (27.0-31.0); MEAN CORPUSCULAR HGB CONC 33.9 g/dL (32.0-36.0); MEAN CORPUSCULAR VOLUME 95.1 fL (80.0-94.0); MEAN PLATELET VOLUME 9.3 fL (7.4-11.4); MONOCYTES # (AUTO) 0.6 10^3/uL (0.0-1.0); MONOCYTES % (AUTO) 14.1 %; NEUTROPHILS # (AUTO) 1.7 10^3/uL (1.5-6.6); NEUTROPHILS % (AUTO) 42.9 %; PLT - PLATELET COUNT 75 10^3/uL (130-450); RED BLOOD COUNT 3.66 10^6/uL (4.70-6.10); RED CELL DISTRIBUTION WIDTH 16.9 % (12.0-15.0)
[2024-02-01 18:34] LABS: CALCIUM 9.3 mg/dL (8.5-10.3); POTASSIUM 4.3 mmol/L (3.5-4.5)
== END 2024-02-01 15:40 | disposition home or self-care (01) ==
LOC: LAB.N 15:39
PROVIDERS: ATTEND Family Medicine
DX: D61.818 Other pancytopenia (principal); I51.7 Cardiomegaly; K76.6 Portal hypertension
CPT/HCPCS: 36415; 80048; 83880; 85025

== ENCOUNTER 2024-04-11 10:39 | Outpatient (CLI) | payer OTHER ==
[2024-04-11 12:36] LABS: EOSINOPHILS # (AUTO) 0.3 10^3/uL (0.0-0.7); HCT - HEMATOCRIT 34.3 % (42.0-52.0); HGB - HEMOGLOBIN 11.6 g/dL (14.0-18.0); LYMPHOCYTES # (AUTO) 1.3 10^3/uL (1.5-3.5); LYMPHOCYTES % (AUTO) 30.4 %; MEAN CORPUSCULAR HEMOGLOBIN 33.1 pg (27.0-31.0); MEAN CORPUSCULAR HGB CONC 33.8 g/dL (32.0-36.0); MEAN PLATELET VOLUME 9.3 fL (7.4-11.4); MONOCYTES # (AUTO) 0.6 10^3/uL (0.0-1.0); MONOCYTES % (AUTO) 13.3 %; NEUTROPHILS % (AUTO) 46.8 %; PLT - PLATELET COUNT 66 10^3/uL (130-450); RED CELL DISTRIBUTION WIDTH 14.7 % (12.0-15.0); WHITE BLOOD COUNT 4.2 x10^3/uL (4.8-10.8)
[2024-04-11 12:51] LABS: ESTIMATED AVERAGE GLUCOSE 65 mg/dL (70-100); HEMOGLOBIN A1c% 3.9 % (4.27-6.07)
[2024-04-11 12:53] LABS: CALCIUM 8.9 mg/dL (8.5-10.3); CREATININE 0.9 mg/dL (0.6-1.3); POTASSIUM 3.9 mmol/L (3.5-4.5)
== END 2024-04-11 10:40 | disposition home or self-care (01) ==
LOC: LAB.N 10:39
PROVIDERS: ATTEND Family Medicine
DX: I11.9 Hypertensive heart disease without heart failure (principal); D61.818 Other pancytopenia; K76.6 Portal hypertension
CPT/HCPCS: 36415; 80048; 83036; 83880; 85025

== ENCOUNTER 2024-07-14 11:48 | Outpatient (CLI) | payer OTHER ==
[2024-07-14 18:03] LABS: BASOPHILS % (AUTO) 0.9 %; EOSINOPHILS # (AUTO) 0.3 10^3/uL (0.0-0.7); EOSINOPHILS % (AUTO) 6.5 %; HCT - HEMATOCRIT 33.6 % (42.0-52.0); HGB - HEMOGLOBIN 11.7 g/dL (14.0-18.0); LYMPHOCYTES # (AUTO) 1.2 10^3/uL (1.5-3.5); LYMPHOCYTES % (AUTO) 25.9 %; MEAN CORPUSCULAR HEMOGLOBIN 34.2 pg (27.0-31.0); MEAN CORPUSCULAR HGB CONC 34.8 g/dL (32.0-36.0); MEAN CORPUSCULAR VOLUME 98.2 fL (80.0-94.0); MEAN PLATELET VOLUME 9.3 fL (7.4-11.4); MONOCYTES # (AUTO) 0.5 10^3/uL (0.0-1.0); MONOCYTES % (AUTO) 12.1 %; NEUTROPHILS # (AUTO) 2.4 10^3/uL (1.5-6.6); NEUTROPHILS % (AUTO) 54.2 %; PLT - PLATELET COUNT 77 10^3/uL (130-450); RED BLOOD COUNT 3.42 10^6/uL (4.70-6.10); RED CELL DISTRIBUTION WIDTH 14.2 % (12.0-15.0); WHITE BLOOD COUNT 4.5 x10^3/uL (4.8-10.8)
[2024-07-14 18:21] LABS: ALBUMIN 3.1 g/dL (3.2-5.5); ALBUMIN/GLOBULIN RATIO 1.1 (1.0-2.2); BILIRUBIN,TOTAL 3.9 mg/dL (0.2-1.0); CALCIUM 8.6 mg/dL (8.5-10.3); POTASSIUM 4.4 mmol/L (3.5-4.5); TOTAL PROTEIN 5.8 g/dL (6.4-8.9)
[2024-07-14 18:32] LABS: FERRITIN 140.6 ng/mL (23.9-336.2)
== END 2024-07-14 11:49 | disposition home or self-care (01) ==
LOC: LAB.N 11:48
PROVIDERS: ATTEND Family Medicine
DX: K76.6 Portal hypertension (principal); I34.0 Nonrheumatic mitral (valve) insufficiency; D61.818 Other pancytopenia
CPT/HCPCS: 36415; 80053; 82728; 85025